=== PATIENT | female | born 1960 | race Caucasian/White ===

== ENCOUNTER → 2020-03-07 08:11 | Outpatient (BNVA) | payer MEDICARE, SELFPAY | PROVIDERS: Visit Provider Surgery | DX: E66.3 Overweight (principal); K90.9 Intestinal malabsorption, unspecified; Z71.3 Dietary counseling and surveillance | CPT/HCPCS: 99212 ==

== ENCOUNTER 2020-04-08 06:53 | Outpatient (REF) | payer MEDICARE, SELFPAY ==
[2020-04-08 07:57] LABS: MANUAL DIFF FLAG NO
[2020-04-08 08:03] LABS: Basophils Percent Auto 0.5 % (0-2); Eosinophils Absolute Auto 0.1 X10*3/uL (0.0-0.4); Eosinophils Percent Auto 2.1 % (0-4); Hematocrit 33.9 % (37-47); Hemoglobin 10.9 g/dl (12.0-16.0); Imm Gran Abs Auto 0.01 X10*3/uL (0.00-0.03); Imm Gran Pct Auto 0.3 % (0.0-0.4); Lymphocytes Percent Auto 25.1 % (20-40); Mean Corpuscular HGB Conc 32.2 g/dl (31.0-35.0); Mean Corpuscular Hemoglobin 31.1 pg (27.0-33.0); Mean Corpuscular Volume 96.6 fL (80-98); Mean Platelet Volume 9.3 fL (9.4-12.3); Monocytes Absolute Auto 0.4 X10*3/uL (0.1-1.2); Monocytes Percent Auto 9.6 % (2-11); Neutrophils Absolute Auto 2.4 X10*3/uL (2.0-8.3); Neutrophils Percent Auto 62.4 % (45-73); Platelet Count 285 X10*3/uL (160-400); Red Blood Count 3.51 X10*6/uL (4.20-5.50); Red Cell Distribution Width 14.9 % (11.0-16.0); White Blood Count 3.9 X10*3/uL (4.8-10.8)
[2020-04-08 08:32] LABS: Alanine Aminotransferase 21 U/L (0-31); Albumin Level 4.2 g/dL (3.5-5.0); Alkaline Phosphatase 104 U/L (39-117); Anion Gap 14 (12-20); Aspartate Amino Transferase 21 U/L (5-31); Bilirubin Total 0.9 mg/dL (0.0-1.0); Blood Urea Nitrogen 20 mg/dL (9-16); C Reactive Protein 0.06 mg/dL (< or = 0.50); Carbon Dioxide 24 mmol/L (22-29); Chloride 104 mmol/L (96-108); Cholesterol 165 mg/dL; Estimated Glomerular Filt Rate > 60; Glucose Random 82 mg/dL (60-115); HDL Cholesterol 40 mg/dL; LDL Cholesterol Calculated 108 mg/dl; Potassium 3.6 mmol/l (3.3-5.1); Sodium 138 mmol/L (135-145); Total Protein 6.7 g/dL (6.5-8.0); Triglycerides 88 mg/dL
[2020-04-08 08:45] LABS: Hemoglobin A1c % < 4.0 %
[2020-04-08 08:56] LABS: Ferritin 103 ng/mL (10-250)
[2020-04-08 09:39] LABS: Folate 15.7 ng/mL (> or = 4.0); Vitamin B12 473 pg/mL (200-900)
[2020-04-11 01:56] LABS: Zinc 72 mcg/dL (60-130)
[2020-04-13 10:57] LABS: Vitamin B1 18 nmol/L (8-30)
[2020-04-13 14:52] LABS: Vitamin A 47 mcg/dL (38-98)
== END 2020-04-08 06:54 | disposition home or self-care (01) ==
LOC: HO.LAB 06:53
PROVIDERS: Visit Provider Surgery
DX: E66.3 Overweight (principal); K90.9 Intestinal malabsorption, unspecified
CPT/HCPCS: 36415; 80053; 80061; 82607; 82728; 82746; 83036; 83525; 84425; 84590; 84630; 85025; 86140

== ENCOUNTER → 2020-04-11 07:32 | Outpatient (BNVA) | payer MEDICARE, SELFPAY | PROVIDERS: Visit Provider Surgery | DX: E66.3 Overweight (principal); Z68.27 Body mass index [BMI] 27.0-27.9, adult; Z71.3 Dietary counseling and surveillance | CPT/HCPCS: Q3014 ==

== ENCOUNTER → 2020-05-11 08:05 | Outpatient (BNVA) | payer MEDICARE, SELFPAY | PROVIDERS: Visit Provider Surgery | DX: E66.3 Overweight (principal); Z68.26 Body mass index [BMI] 26.0-26.9, adult; Z71.3 Dietary counseling and surveillance | CPT/HCPCS: Q3014 ==

== ENCOUNTER → 2020-06-29 08:10 | Outpatient (BNVA) | payer MEDICARE, SELFPAY | PROVIDERS: Visit Provider Surgery | DX: R11.0 Nausea (principal) | CPT/HCPCS: Q3014 ==

== ENCOUNTER → 2020-07-27 08:05 | Outpatient (BNVA) | payer MEDICARE, SELFPAY | PROVIDERS: Visit Provider Surgery | DX: K90.9 Intestinal malabsorption, unspecified (principal); Z68.20 Body mass index [BMI] 20.0-20.9, adult; Z98.84 Bariatric surgery status; Z71.3 Dietary counseling and surveillance; Z87.891 Personal history of nicotine dependence | CPT/HCPCS: Q3014 ==

== ENCOUNTER 2020-08-15 10:28 | Outpatient (REF) | payer MEDICARE, SELFPAY ==
[2020-08-15 11:38] LABS: MANUAL DIFF FLAG NO
[2020-08-15 11:48] LABS: Basophils Percent Auto 0.6 % (0-2); Eosinophils Percent Auto 1.1 % (0-4); Hematocrit 33.2 % (37-47); Hemoglobin 10.7 g/dl (12.0-16.0); Lymphocytes Absolute Auto 1.1 X10*3/uL (1.2-4.9); Lymphocytes Percent Auto 30.1 % (20-40); Mean Corpuscular HGB Conc 32.2 g/dl (31.0-35.0); Mean Corpuscular Hemoglobin 34.7 pg (27.0-33.0); Mean Corpuscular Volume 107.8 fL (80-98); Mean Platelet Volume 9.2 fL (9.4-12.3); Monocytes Absolute Auto 0.4 X10*3/uL (0.1-1.2); Monocytes Percent Auto 11.2 % (2-11); Platelet Count 333 X10*3/uL (160-400); Red Blood Count 3.08 X10*6/uL (4.20-5.50); White Blood Count 3.5 X10*3/uL (4.8-10.8)
[2020-08-15 12:25] LABS: TSH reflex Free T4 1.25 uIU/mL (0.32-4.0); Vitamin D 25-OH Total 12.6 ng/mL (>30)
[2020-08-15 12:27] LABS: Alanine Aminotransferase 60 U/L (0-31); Albumin Level 3.8 g/dL (3.5-5.0); Alkaline Phosphatase 113 U/L (39-117); Anion Gap 12 (12-20); Aspartate Amino Transferase 29 U/L (5-31); Bilirubin Total 1.1 mg/dL (0.0-1.0); Blood Urea Nitrogen 27 mg/dL (9-16); C Reactive Protein 0.08 mg/dL (< or = 0.50); Calcium 9.1 mg/dL (8.4-10.2); Carbon Dioxide 25 mmol/L (22-29); Chloride 106 mmol/L (96-108); Cholesterol 138 mg/dL; Estimated Glomerular Filt Rate > 60; Glucose Random 76 mg/dL (60-115); HDL Cholesterol 41 mg/dL; LDL Cholesterol Calculated 79 mg/dl; Potassium 4.1 mmol/L (3.3-5.1); Sodium 139 mmol/L (135-145); Total Protein 6.1 g/dL (6.5-8.0); Triglycerides 90 mg/dL
[2020-08-15 12:34] LABS: Folate 15.4 ng/mL (> or = 4.0); Vitamin B12 1192 pg/mL (200-900)
[2020-08-15 13:15] LABS: Ferritin 166 ng/mL (10-250)
[2020-08-16 11:52] LABS: Calcium (PTHI) 9.2 mg/dL (8.6-10.4); PTHI 57 pg/mL (14-64)
[2020-08-18 06:12] LABS: Zinc 71 mcg/dL (60-130)
[2020-08-20 12:16] LABS: Vitamin A 29 mcg/dL (38-98)
[2020-08-22 08:26] LABS: Vitamin B1 20 nmol/L (8-30)
== END 2020-08-15 10:29 | disposition home or self-care (01) ==
LOC: HO.LAB 10:28
PROVIDERS: Visit Provider Surgery
DX: K90.9 Intestinal malabsorption, unspecified (principal)
CPT/HCPCS: 36415; 80053; 80061; 82306; 82607; 82728; 82746; 83036; 83525; 83970; 84425; 84443; 84590; 84630; 85025; 86140

== ENCOUNTER → 2020-08-26 08:12 | Outpatient (BNVA) | payer MEDICARE, SELFPAY | PROVIDERS: Visit Provider Surgery | DX: K90.9 Intestinal malabsorption, unspecified (principal) | CPT/HCPCS: Q3014 ==

== ENCOUNTER → 2020-09-26 08:12 | Outpatient (BNVA) | payer MEDICARE, SELFPAY | PROVIDERS: Visit Provider Surgery | DX: K90.9 Intestinal malabsorption, unspecified (principal) | CPT/HCPCS: Q3014 ==

== ENCOUNTER 2020-10-03 07:22 | Outpatient (REF) | payer MEDICARE, SELFPAY ==
[2020-10-03 08:03] LABS: MANUAL DIFF FLAG NO
[2020-10-03 08:12] LABS: Basophils Percent Auto 0.7 % (0-2); Eosinophils Absolute Auto 0.1 X10*3/uL (0.0-0.4); Eosinophils Percent Auto 1.8 % (0-4); Hematocrit 35.1 % (37-47); Hemoglobin 11.3 g/dl (12.0-16.0); Lymphocytes Percent Auto 35.5 % (20-40); Mean Corpuscular HGB Conc 32.2 g/dl (31.0-35.0); Mean Corpuscular Hemoglobin 33.7 pg (27.0-33.0); Mean Corpuscular Volume 104.8 fL (80-98); Mean Platelet Volume 9.4 fL (9.4-12.3); Monocytes Absolute Auto 0.3 X10*3/uL (0.1-1.2); Monocytes Percent Auto 9.9 % (2-11); Neutrophils Absolute Auto 1.5 X10*3/uL (2.0-8.3); Neutrophils Percent Auto 52.1 % (45-73); Platelet Count 238 X10*3/uL (160-400); Red Blood Count 3.35 X10*6/uL (4.20-5.50); Red Cell Distribution Width 12.9 % (11.0-16.0); White Blood Count 2.8 X10*3/uL (4.8-10.8)
[2020-10-03 08:42] LABS: Alanine Aminotransferase 55 U/L (0-31); Alkaline Phosphatase 113 U/L (39-117); Anion Gap 13 (12-20); Aspartate Amino Transferase 51 U/L (5-31); Bilirubin Total 1.1 mg/dL (0.0-1.0); Blood Urea Nitrogen 22 mg/dL (9-16); C Reactive Protein 0.04 mg/dL (< or = 0.50); Calcium 9.4 mg/dL (8.4-10.2); Carbon Dioxide 25 mmol/L (22-29); Chloride 106 mmol/L (96-108); Cholesterol 150 mg/dL; Estimated Glomerular Filt Rate > 60; Glucose Random 89 mg/dL (60-115); HDL Cholesterol 39 mg/dL; Iron 94 mcg/dL (30-160); LDL Cholesterol Calculated 92 mg/dl; Percent Iron Saturation 35 % (15-50); Potassium 3.6 mmol/L (3.3-5.1); Sodium 140 mmol/L (135-145); Total Iron Binding Capacity 265 mcg/dL (228-428); Total Protein 6.4 g/dL (6.5-8.0); Triglycerides 96 mg/dL; Unsaturated Iron Binding 171 ug/dL
[2020-10-03 08:51] LABS: Hemoglobin A1c % < 4.0 %
[2020-10-03 08:55] LABS: Ferritin 130 ng/mL (10-250); TSH reflex Free T4 0.76 uIU/mL (0.32-4.0); Vitamin D 25-OH Total 31.2 ng/mL (>30)
[2020-10-03 10:46] LABS: Folate 15.6 ng/mL (> or = 4.0); Vitamin B12 404 pg/mL (200-900)
[2020-10-05 13:32] LABS: Calcium (PTHI) 9.7 mg/dL (8.6-10.4); PTHI 38 pg/mL (14-64)
[2020-10-06 06:32] LABS: Zinc 57 mcg/dL (60-130)
[2020-10-07 13:17] LABS: Vitamin B1 27 nmol/L (8-30)
[2020-10-08 00:56] LABS: Vitamin A 35 mcg/dL (38-98)
== END 2020-10-03 07:23 | disposition home or self-care (01) ==
LOC: HO.LAB 07:22
PROVIDERS: Visit Provider Surgery
DX: K90.9 Intestinal malabsorption, unspecified (principal)
CPT/HCPCS: 36415; 80053; 80061; 82306; 82607; 82728; 82746; 83036; 83525; 83540; 83970; 84425; 84443; 84590; 84630; 85025; 86140

== ENCOUNTER 2020-10-15 16:26 | Inpatient (IN) | payer MEDICARE, SELFPAY ==
--- NOTE | ~2020-10-15 | CT_ITS ---
EXAMINATION: CT ANGIOGRAM HEAD CT ANGIOGRAM NECK CLINICAL INFORMATION: Left-sided mouth drooping. Slurred speech. History of cerebral vascular accident. Schwannoma. COMPARISON: None available. TECHNIQUE: Initial noncontrast wafer batter mixer imaging of the head and neck was performed. Noncontrast head CT was also performed. Test bolus sequences followed by intravenous administration 70 mL of Omnipaque 350. Helical imaging was performed in the axial plane from the aortic arch to the skull vertex. Delayed postcontrast imaging of the head was also performed. The data was processed at the phlebotomy technologist's workstation for generation of MIP sequences. Angled MIPs and volume rendered reformatted images were also generated at an offline 3D workstation. Stenoses are assessed in accordance with NASCET criteria unless otherwise indicated. This CT examination was performed using dose optimization techniques as appropriate, variously including the following: *Automated exposure control. *Adjustment of mA and/or kV according to patient size (this includes techniques or standardized protocols for targeted exams where dose is matched to indication/reason for exam; i.e. extremities or head). *Use of iterative reconstruction technique. DLP: 2037 mGy-cm FINDINGS: CT Head: There is loss of herrera-white matter differentiation centered on the right anterior insula and right frontal operculum. There is also partial loss of distinction of the right lentiform nucleus and caudate head. No evidence of hemorrhagic conversion. Changes of prior left temporal craniotomy for aneurysm clipping in the region of the left-sided M2 bifurcation. Regions of chronic encephalomalacia within the lateral aspect of the left frontal lobe. A few foci of hypoattenuation in the periventricular and deep white matter are consistent with mild microangiopathy. The ventricles are normal in size and configuration. No evidence for obstructive hydrocephalus. No midline shift. No extra-axial fluid collections. There is a enhancing mass filling the right internal auditory canal extending along the right cerebellopontine, measuring 1.7 x 1.4 cm. No pathologic intra-axial enhancement. No acute soft tissue or osseous abnormalities. Mild mucosal thickening of the paranasal sinuses. The mastoid air cells and middle ear cavities are clear. CT Neck: The thyroid gland and remaining cervical soft tissues are within normal limits. Mild degenerative anterolistheses of C7 on T1 and T1 on T2. Advanced degenerative disc disease at C5-C6 and C6-C7. Moderate degenerative disc disease at C4-C5, C7-T1, and T1-T2. Facet and uncovertebral joint arthropathy leads osseous encroachment on the neural foramina from C3-C6. CT Upper Chest: The visualized lung apices and upper mediastinum are within normal limits. Neck CTA: Aortic Arch: Normal contour and caliber with moderate calcific atherosclerotic disease. Classic 3 vessel branching pattern of the aortic arch. Great Vessel Origins: No significant stenosis of the branch origins. Right Common Carotid Artery: No focal stenosis or occlusion. Cervical Right Internal Carotid Artery: Mild calcific atherosclerotic disease of the carotid bulb and proximal internal carotid artery without flow-limiting stenosis. Left Common Carotid Artery: No focal stenosis or occlusion. Cervical Left Internal Carotid Artery: Mild calcific atherosclerotic disease of the carotid bulb and proximal internal carotid artery without flow-limiting stenosis. Cervical Right Vertebral Artery: No focal stenosis or occlusion. Cervical Left Vertebral Artery: Dominant. No focal stenosis or occlusion. Brain CTA: Moderate venous contamination. Intracranial Internal Carotid Arteries: Mild calcific atherosclerotic disease of the intracranial internal carotid arteries without occlusion or flow-limiting stenosis. No focal stenosis or occlusion. There is a 0.2 cm infundibulum at the origin of the right-sided posterior communicating artery. Right Anterior Cerebral Artery: Normal A1 segment. Normal opacification of the distal JOSS segments. Left Anterior Cerebral Artery: The A1 segment is diminutive. Normal opacification of the distal JOSS segments. Anterior Communicating Artery: Normal. Right Middle Cerebral Artery: Normal M1 segment of the MCA without focal stenosis or occlusion. There is occlusion of the proximal M2 branch (image [id number]). Left Middle Cerebral Artery: Normal M1 segment of the MCA without focal stenosis or occlusion. Normal arborization of the distal segments. Changes of surgical clipping of an M1-M2 bifurcation aneurysm. There is opacification of a 0.6 cm aneurysm base associated with this clipping. Right Vertebral Artery: The V4 segment largely terminates as the posterior inferior cerebellar artery. Left Vertebral Artery: Normal V4 segment. Normal opacification of the proximal segments of the posterior inferior cerebellar artery. Basilar Artery: Normal without focal stenosis or occlusion. Normal appearance of the proximal superior cerebellar arteries. Right Posterior Cerebral Artery: Normal P1 segment. Normal opacification of the distal OY[employer] [place]ER segments. Left Posterior Cerebral Artery: The P1 segment is diminutive. origin of the [employer] with robust opacification of the posterior communicating artery. Normal opacification of the distal [place] segments. Normal opacification of the superior sagittal, straight, transverse, and sigmoid sinuses. CT/CT angio head neck IMPRESSION: 1. Acute infarct of the right anterior insula, right frontal operculum, and right lentiform nucleus/caudate head. No hemorrhagic conversion. 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 2. Prior clipping of an aneurysm at the left M1-M2 junction. A 0.6 cm base of this aneurysm remains opacified at this time. Recommend comparison with prior angiographic imaging. 3. A 1.7 cm mass is noted filling the right internal auditory canal and extending along the right cerebellopontine angle. Findings remain most consistent with a schwannoma. This critical result was discussed with Melinda Tirado MD at 19:58 on 10/15/2020 and it was ascertained that the content and urgency of the report was understood at the time of direct communication.
--- NOTE | ~2020-10-15 | US_ITS ---
EXAMINATION: LEFT LOWER EXTREMITY DEEP VENOUS ULTRASOUND CLINICAL INFORMATION: Left lower extremity swelling COMPARISON: None. TECHNIQUE: Duplex Doppler imaging with compression maneuvers were performed of the left lower extremity deep venous system. FINDINGS: The visualized common femoral, femoral and popliteal veins demonstrate normal compressibility and color flow without evidence of venous thrombosis. Visualized portions of the calf veins demonstrate normal color fill-in suggesting patency. There is no evidence of a Pedraza's cyst. US/US venous duplex LE LT IMPRESSION: No evidence of deep venous thrombosis involving the left lower extremity.
[2020-10-15 16:34] VITALS: BP 98/64; PULSE 73; RESP 16; O2SAT 98; BMI 23.4
[2020-10-15 16:57] LABS: MANUAL DIFF FLAG NO
[2020-10-15 17:06] LABS: Hematocrit 31.5 % (37-47); Hemoglobin 10.3 g/dl (12.0-16.0); Mean Corpuscular HGB Conc 32.7 g/dl (31.0-35.0); Mean Platelet Volume 9.1 fL (9.4-12.3); Neutrophils Percent Auto 69.1 % (45-73); Platelet Count 242 X10*3/uL (160-400); Red Blood Count 3.03 X10*6/uL (4.20-5.50); Red Cell Distribution Width 13.2 % (11.0-16.0); White Blood Count 4.6 X10*3/uL (4.8-10.8)
[2020-10-15 17:07] LABS: Imm Gran Abs Auto 0.02 X10*3/uL (0.00-0.03); Imm Gran Pct Auto 0.4 % (0.0-0.4); Lymphocytes Absolute Auto 0.9 X10*3/uL (1.2-4.9); Lymphocytes Percent Auto 19.4 % (20-40); Monocytes Absolute Auto 0.5 X10*3/uL (0.1-1.2); Monocytes Percent Auto 11.1 % (2-11); Neutrophils Absolute Auto 3.2 X10*3/uL (2.0-8.3)
--- NOTE | 2020-10-15 17:10 | ECG_ITS ---
Test Reason : STROKE Blood Pressure : / mmHG Vent. Rate : 061 BPM Atrial Rate : 061 BPM P-R Int : 124 ms QRS Dur : 090 ms QT Int : 424 ms P-R-T Axes : 055 037 030 degrees QTc Int : 426 ms Normal sinus rhythm Normal ECG No previous ECGs available Referred By: Melinda Tirado Electronically Signed By:Lester Loyola
[2020-10-15 17:12] LABS: INTERNATIONAL NORM RATIO 1.1 (0.9-1.1); Prothrombin Time 13.4 SEC (10.8-13.0)
--- NOTE | 2020-10-15 17:13 | ED.NEUROSD ---
HPI - Neuro Symptoms/Deficit General Chief Complaint: Stroke Stated Complaint: Stroke? Time Seen by Provider: 10/15/20 16:54 Source: patient and family Mode of arrival: wheelchair Limitations: no limitations History of Present Illness HPI Narrative: Patient comes emergency room complaining of left-sided mouth droop and slurry speech. Patient states that this morning around 09:30, patient had trouble walking due to weakness in both legs. 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 Patient did not think anything was unusual, today she was seen by her sister at 09:30 in the morning, the sister thinks that patient has left-sided mouth droop and that her speech is slurry. Patient disagrees with her sister, states that she is at baseline. Patient states that she has had history of CVAs in the past, brain aneurysms with 7 clips, right-sided schwannoma with chronic mild right-sided arm weakness. Patient on blood thinners. Patient denies dizziness, no headache, states that she feels well. Related Data Home Medications Medication Instructions Recorded Confirmed brexpiprazole [Rexulti] 1 tab PO BEDTIME 10/15/20 10/15/20 clonazepam 1 tab PO BEDTIME 10/15/20 10/15/20 clotrimazole 1 appl TOPICAL BID 10/15/20 10/15/20 cyanocobalamin (vitamin B-12) 1 ml IM Q2W 10/15/20 10/15/20 escitalopram oxalate 1 tab PO DAILY 10/15/20 10/15/20 lamotrigine 1 tab PO DAILY 10/15/20 10/15/20 ondansetron 1 tab PO Q12H 10/15/20 10/15/20 oxybutynin chloride 1 tab PO DAILY 10/15/20 10/15/20 quetiapine 1 tab PO BEDTIME 10/15/20 10/15/20 sucralfate 1 tab PO BID 10/15/20 10/15/20 topiramate 1 cap PO BEDTIME 10/15/20 10/15/20 triamterene-hydrochlorothiazid 1 tab PO DAILY 10/15/20 10/15/20 venlafaxine 1 tab PO DAILY 10/15/20 10/15/20 vortioxetine [Trintellix] 1 tab PO DAILY 10/15/20 10/15/20 Allergies Allergy/AdvReac Type Severity Reaction Status Date / Time epinephrine [EPINEPHRINE] Allergy Unknown SHAKY Verified 10/15/20 16:36 metoclopramide [From REGLAN] Allergy Unknown FIGHT OR Verified 10/15/20 16:36 FLIGHT RESPONSE morphine [MORPHINE] Allergy Unknown GI UPSET Verified 10/15/20 16:36 Review of Systems Review of Systems: Constitutional : No Weight loss, No Fever, No Chills, No Night Sweats, No Fatigue, No Malaise chronic weakness ENT/Mouth : No Hearing loss, No Ear Pain, No Nasal Congestion, No Sinus Pain, No Hoarseness, No sore throat, No Rhinorrhea, No Swallowing Difficulty Eyes: No Eye Pain, No Swelling, No Redness, No Foreign Body, No Discharge, No Vision Changes Cardiovascular : No Chest Pain, No SOB, No Dyspnea on Exertion, No Orthopnea, No Edema, No Palpitations Respiratory : No Cough, No Sputum, No Wheezing, No Smoke Exposure, No Dyspnea Gastrointestinal : No Nausea, No Vomiting, No Diarrhea, No Constipation, No abdominal Pain, No Hematochezia, No Melena Genitourinary : no irregular bleeding, No Dysuria, No Urinary Frequency, No Hematuria, No Urinary Incontinence, No Urgency, No Flank Pain, No Urinary Flow Changes, No Hesitancy Musculoskeletal : No joint pain, No Myalgias, No Joint Swelling, chronic muscle weakness Skin : No Skin Lesions, No rash Neuro : No Weakness, No Numbness, No Paresthesias, No Loss of Consciousness, No Dizziness, No Headache, new left-sided mouth droop and slurred speech per family Psych : No Anxiety/Panic, No Depression, No SI/HI/AH/VH, No Social Issues, Heme/Lymph: No Bruising, No Bleeding,No Lymphadenopathy Endocrine : No Polyuria, No Polydipsia, No Temperature Intolerance PMFSH Past Medical History Medical History H/O cerebral artery occlusion Intestinal malabsorption Overweight Schwannoma Surgical History H/O cosmetic surgery History of craniotomy History of pubovaginal sling History of Anahi-en-Y gastric bypass Hx laparoscopic cholecystectomy Hx of hernia repair S/P laminectomy S/P nasal surgery S/P rotator cuff repair S/P TKR (total knee replacement) Family History Family History (Updated 02/29/20 @ 13:17 by Chad Thomson [facility]) Father No problems noted. Mother No problems noted. Social History Social History (Updated 02/29/20 @ 13:26 by Chad Thomson [facility]) Household Members: None Housing: Condominium Do you presently have visiting nurse or other home services: No (pt sister helps her out around house) Alcohol intake: current Alcohol intake frequency: holidays/special occasions only Patient Tobacco Use Status: Former Tobacco user Cigarette Packs Per Day: 2 Cigarettes Per Day: 40.0 Smoked in Last 30 Days: No Use of substances other than those prescribed or required for medical reasons: No Have you been hit, kicked, punched, or otherwise hurt by someone within the past year? If so, by whom?: No Do you feel safe in your current relationship?: No Is there a partner from a previous relationship who is making you feel unsafe now?: No Are you made to feel afraid or neglected: No Advance Directives: No Advance Directives Information Provided: No Do you have thoughts of harming others: None Do you have a plan to hurt others: No Plan Recently lost weight without trying: No How much weight loss: Not applicable Eating poorly because of decreased appetite: No Nutrition screen score: 0 Nutrition Risks: No Nutritional Risk Patient : No : No Poor oral hygiene: No Physical Exam Vital Signs: Vital Signs: Last Vital Signs Temp 98.1 F 10/16/20 00:17 Pulse 67 10/16/20 00:17 Resp 18 10/16/20 00:17 BP 101/61 10/16/20 00:17 Pulse Ox 97 10/16/20 00:17 Body Mass Index 23.4 Appearance: Alert. Oriented X3. No acute distress. Eyes: Pupils equal, round and reactive to light. ENT: Pharynx normal. Neck: Normal inspection. Neck supple. No lymph nodes noted. No crepitus CVS: Normal heart rate and rhythm. Pulses normal. Normal S1 and S2 Respiratory: No respiratory distress. Breath sounds normal. No Wheezing. No rales Abdomen: Soft and nontender. No rigidity. No distention. good BS x4 Skin: Skin warm and dry. Normal skin color. Normal skin turgor. Extremities: No lower extremity edema. No lower extremity edema. No Lacerations. No Rash Neuro: Oriented X 3. Moderate left-sided mouth droop, able to raise eyebrows, good strength in upper and lower extremities, left upper extremity 4/5, otherwise normal. Per family, the speech is still a bit slurry, to me it sounds nearly normal Course Course Course Narrative: After I received phone call from [facility] regarding the patient's CT scan, I discussed the patient with Dr. Packer. Dr. Packer recommended to call [facility]. I spoke to Dr. Hennessy, Neurology endovascular interventionalist. Given the patient's symptoms and the NIH score of 3, at this time, interventional treatment is not recommended, only medical. I spoke to the patient regarding the above-mentioned recommendations. Patient agrees to stay in the hospital. Ideally, patient should be given baby aspirin 81 mg, however at this time patient is refusing because she has history of gastric sleeve surgery, and will not take it until Dr. Robertson approves that she takes aspirin. I contacted Dr. Robertson by [employer], he is not source water protection specialist today. Response pending. Patient states that she will not take advice from anyone but him, including ASSOCIATE PROFESSOR OF ECONOMICS/PA or other attendings source water protection specialist. I discussed the patient with Dr. Villalobos, who will be admitting the pt I was able to get in touch with Dr. Robertson, patient is not to be given aspirin, only Plavix. I spoke to Dr. Packer about the Plavix, who agrees that the patient can be treated with Plavix 75 mg MDM - Neuro Symptoms/Deficit Lab Data Result diagrams: 10/15/20 22:21 10/15/20 22:21 Labs: Lab Results 10/15/20 10/15/20 10/15/20 Range/Units 16:51 16:51 16:52 WBC 4.6 L (4.8-10.8) X10*3/uL RBC 3.03 L (4.20-5.50) X10*6/uL Hgb 10.3 L (12.0-16.0) g/dl Hct 31.5 L (37-47) % MCV 104.0 H (80-98) fL MCH 34.0 H (27.0-33.0) pg MCHC 32.7 (31.0-35.0) g/dl RDW 13.2 (11.0-16.0) % Plt Count 242 (160-400) X10*3/uL MPV 9.1 L (9.4-12.3) fL Immature Gran % (Auto) 0.4 (0.0-0.4) % Neut % (Auto) 69.1 (45-73) % Lymph % (Auto) 19.4 L (20-40) % [place] % (Auto) 11.1 H (2-11) % Eos % (Auto) 0.0 (0-4) % Baso % (Auto) 0.0 (0-2) % Lymph # (Auto) 0.9 L (1.2-4.9) X10*3/uL [place] # (Auto) 0.5 (0.1-1.2) X10*3/uL Eos # (Auto) 0.0 (0.0-0.4) X10*3/uL Baso # (Auto) 0.0 (0.0-0.2) X10*3/uL Abs Immat Gran (auto) 0.02 (0.00-0.03) X10*3/uL Absolute Neuts (auto) 3.2 (2.0-8.3) X10*3/uL Absolute Nucleated RBC 0.000 (0.0-0.012) X10*3/uL Nucleated RBC % (auto) 0.0 (0.0-0.2) /100WBC PT (10.8-13.0) SEC INR (0.9-1.1) Sodium 142 (135-145) mmol/L Potassium 3.6 (3.3-5.1) mmol/L Chloride 108 (96-108) mmol/L Carbon Dioxide 24 (22-29) mmol/L Anion Gap 14 (12-20) BUN 17 H (9-16) mg/dL Creatinine 0.58 (0.5-1.4) mg/dL Estim Creat Clear Calc 74.0 Estimated GFR > 60 POC Glucose (60-115) mg/dL Random Glucose 105 (60-115) mg/dL Calcium 9.4 (8.4-10.2) mg/dL Total Bilirubin 0.9 (0.0-1.0) mg/dL Direct Bilirubin (0.0-0.5) mg/dL AST 51 H (5-31) U/L ALT 42 H (0-31) U/L Alkaline Phosphatase 107 (39-117) U/L Troponin I High Sens 8.1 (<3.5-17.0) ng/L Total Protein 6.2 L (6.5-8.0) g/dL Albumin 3.9 (3.5-5.0) g/dL COVID-19 (MAICOL) (Negative) COVID-19 Clin Com 10/15/20 10/15/20 10/15/20 Range/Units 16:52 16:52 19:14 WBC 3.5 L (4.8-10.8) X10*3/uL RBC 2.62 L (4.20-5.50) X10*6/uL Hgb 8.8 L (12.0-16.0) g/dl Hct 27.1 L (37-47) % MCV 103.4 H (80-98) fL MCH 33.6 H (27.0-33.0) pg MCHC 32.5 (31.0-35.0) g/dl RDW 13.2 (11.0-16.0) % Plt Count 206 (160-400) X10*3/uL MPV 9.2 L (9.4-12.3) fL Immature Gran % (Auto) 0.3 (0.0-0.4) % Neut % (Auto) 59.0 (45-73) % Lymph % (Auto) 28.3 (20-40) % [place] % (Auto) 11.8 H (2-11) % Eos % (Auto) 0.3 (0-4) % Baso % (Auto) 0.3 (0-2) % Lymph # (Auto) 1.0 L (1.2-4.9) X10*3/uL [place] # (Auto) 0.4 (0.1-1.2) X10*3/uL Eos # (Auto) 0.0 (0.0-0.4) X10*3/uL Baso # (Auto) 0.0 (0.0-0.2) X10*3/uL Abs Immat Gran (auto) 0.01 (0.00-0.03) X10*3/uL Absolute Neuts (auto) 2.0 (2.0-8.3) X10*3/uL Absolute Nucleated RBC 0.000 (0.0-0.012) X10*3/uL Nucleated RBC % (auto) 0.0 (0.0-0.2) /100WBC PT 13.4 H (10.8-13.0) SEC INR 1.1 (0.9-1.1) Sodium (135-145) mmol/L Potassium (3.3-5.1) mmol/L Chloride (96-108) mmol/L Carbon Dioxide (22-29) mmol/L Anion Gap (12-20) BUN (9-16) mg/dL Creatinine (0.5-1.4) mg/dL Estim Creat Clear Calc Estimated GFR POC Glucose (60-115) mg/dL Random Glucose (60-115) mg/dL Calcium (8.4-10.2) mg/dL Total Bilirubin (0.0-1.0) mg/dL Direct Bilirubin (0.0-0.5) mg/dL AST (5-31) U/L ALT (0-31) U/L Alkaline Phosphatase (39-117) U/L Troponin I High Sens (<3.5-17.0) ng/L Total Protein (6.5-8.0) g/dL Albumin (3.5-5.0) g/dL COVID-19 (MAICOL) Negative (Negative) COVID-19 Clin Com See Note 10/15/20 10/15/20 Range/Units 19:14 19:25 WBC (4.8-10.8) X10*3/uL RBC (4.20-5.50) X10*6/uL Hgb (12.0-16.0) g/dl Hct (37-47) % MCV (80-98) fL MCH (27.0-33.0) pg MCHC (31.0-35.0) g/dl RDW (11.0-16.0) % Plt Count (160-400) X10*3/uL MPV (9.4-12.3) fL Immature Gran % (Auto) (0.0-0.4) % Neut % (Auto) (45-73) % Lymph % (Auto) (20-40) % [place] % (Auto) (2-11) % Eos % (Auto) (0-4) % Baso % (Auto) (0-2) % Lymph # (Auto) (1.2-4.9) X10*3/uL [place] # (Auto) (0.1-1.2) X10*3/uL Eos # (Auto) (0.0-0.4) X10*3/uL Baso # (Auto) (0.0-0.2) X10*3/uL Abs Immat Gran (auto) (0.00-0.03) X10*3/uL Absolute Neuts (auto) (2.0-8.3) X10*3/uL Absolute Nucleated RBC (0.0-0.012) X10*3/uL Nucleated RBC % (auto) (0.0-0.2) /100WBC PT (10.8-13.0) SEC INR (0.9-1.1) Sodium 141 (135-145) mmol/L Potassium 3.2 L (3.3-5.1) mmol/L Chloride 109 H (96-108) mmol/L Carbon Dioxide 24 (22-29) mmol/L Anion Gap 11 L (12-20) BUN 15 (9-16) mg/dL Creatinine 0.55 (0.5-1.4) mg/dL Estim Creat Clear Calc 78.1 Estimated GFR > 60 POC Glucose 91 (60-115) mg/dL Random Glucose 88 (60-115) mg/dL Calcium 8.7 D (8.4-10.2) mg/dL Total Bilirubin 0.7 (0.0-1.0) mg/dL Direct Bilirubin 0.4 (0.0-0.5) mg/dL AST 38 H (5-31) U/L ALT 35 H (0-31) U/L Alkaline Phosphatase 92 (39-117) U/L Troponin I High Sens (<3.5-17.0) ng/L Total Protein 5.1 L (6.5-8.0) g/dL Albumin 3.3 L (3.5-5.0) g/dL COVID-19 (MAICOL) (Negative) COVID-19 Clin Com ECG Data Attestation: I personally reviewed and interpreted this ECG as follows: (Sent and rhythm, heart rate 61, no ST segment depression or elevation, no T-wave inversion, QTC 426) NIH Stroke Scale Level of Consciousness: Alert Level of Consciousness Questions: Answers both questions correctly Level of Consciousness Commands: Performs both tasks correctly Best Gaze: Normal Visual: No visual loss Facial Palsy: Partial paralysis Motor Arm (Right): No drift Motor Arm (Left): No drift Motor Leg (Right): No drift Motor Leg (Left): No drift Limb Ataxia: Absent Sensory: Normal Best Language: No aphasia Dysarthia: Mild to moderate dysarthria Extinction and Inattention: No abnormality Score: 3 Discharge Plan Discharge Clinical Impression: Acute CVA (cerebrovascular accident) Patient Disposition: Admitted As Inpatient Interventions: Admission Worksheet (ED) Last Done: 10/15/20 23:21
[2020-10-15 17:18] LABS: COVID-19 Test Negative (Negative); IDNOW Serial# 9DD0AD1C
[2020-10-15 17:23] LABS: Troponin-I High Sensitivity 8.1 ng/L (<3.5-17.0)
[2020-10-15 17:27] LABS: Alanine Aminotransferase 42 U/L (0-31); Albumin Level 3.9 g/dL (3.5-5.0); Alkaline Phosphatase 107 U/L (39-117); Anion Gap 14 (12-20); Aspartate Amino Transferase 51 U/L (5-31); Bilirubin Total 0.9 mg/dL (0.0-1.0); Blood Urea Nitrogen 17 mg/dL (9-16); Calcium 9.4 mg/dL (8.4-10.2); Carbon Dioxide 24 mmol/L (22-29); Chloride 108 mmol/L (96-108); Estimated Glomerular Filt Rate > 60; Glucose Random 105 mg/dL (60-115); Potassium 3.6 mmol/L (3.3-5.1); Sodium 142 mmol/L (135-145); Total Protein 6.2 g/dL (6.5-8.0)
[2020-10-15 18:00] VITALS: BP 102/61; PULSE 75; RESP 20; O2SAT 99
[2020-10-15] MEDS: iohexoL 350 MG/ML 100 ML INFUS..BTL IV (19:01)
[2020-10-15 19:18] LABS: MANUAL DIFF FLAG NO
[2020-10-15 19:29] LABS: Glucose, Whole Blood 91 mg/dL (60-115)
[2020-10-15] MEDS: Acetaminophen 325 MG TABLET 650 MG PO (19:29)
[2020-10-15 19:35] LABS: Basophils Percent Auto 0.3 % (0-2); Eosinophils Percent Auto 0.3 % (0-4); Hematocrit 27.1 % (37-47); Hemoglobin 8.8 g/dl (12.0-16.0); Imm Gran Abs Auto 0.01 X10*3/uL (0.00-0.03); Imm Gran Pct Auto 0.3 % (0.0-0.4); Lymphocytes Percent Auto 28.3 % (20-40); Mean Corpuscular HGB Conc 32.5 g/dl (31.0-35.0); Mean Corpuscular Hemoglobin 33.6 pg (27.0-33.0); Mean Corpuscular Volume 103.4 fL (80-98); Mean Platelet Volume 9.2 fL (9.4-12.3); Monocytes Absolute Auto 0.4 X10*3/uL (0.1-1.2); Monocytes Percent Auto 11.8 % (2-11); Platelet Count 206 X10*3/uL (160-400); Red Blood Count 2.62 X10*6/uL (4.20-5.50); Red Cell Distribution Width 13.2 % (11.0-16.0); White Blood Count 3.5 X10*3/uL (4.8-10.8)
--- NOTE | 2020-10-15 19:36 | PC.NURSE ---
2nd attempt to give report. rn unavailable.
[2020-10-15 19:54] LABS: Alanine Aminotransferase 35 U/L (0-31); Albumin Level 3.3 g/dL (3.5-5.0); Alkaline Phosphatase 92 U/L (39-117); Anion Gap 11 (12-20); Aspartate Amino Transferase 38 U/L (5-31); Bilirubin Direct 0.4 mg/dL (0.0-0.5); Bilirubin Total 0.7 mg/dL (0.0-1.0); Blood Urea Nitrogen 15 mg/dL (9-16); Calcium 8.7 mg/dL (8.4-10.2); Carbon Dioxide 24 mmol/L (22-29); Chloride 109 mmol/L (96-108); Creatinine Clr Calc Pharmacy 78.1; Estimated Glomerular Filt Rate > 60; Glucose Random 88 mg/dL (60-115); Potassium 3.2 mmol/L (3.3-5.1); Sodium 141 mmol/L (135-145); Total Protein 5.1 g/dL (6.5-8.0)
[2020-10-15 20:27] VITALS: BP 95/57; PULSE 72; RESP 21; TEMP 36.7; O2SAT 97
--- NOTE | 2020-10-15 20:53 | PC.NURSE ---
Provider at bedside to explain results. patient and family in agreement to hospital admission for medical management due to [facility] being on 10/14 at 2230. Provider explained that due to extensive surgical history, there is limited medical managment options. Neuros checked at 2044, minor improvement in speech noted by family and facial droop by provider.
--- NOTE | 2020-10-15 21:09 | PC.NURSE ---
this narrative writer went back in to patient room to assess patient and family coping of information. pt was on phone with dr. waldron, as reported by pt, per md on phone pt was to give cellphone number [phone] rivera to discuss case with him.
[2020-10-15 22:09] VITALS: PULSE 79; RESP 18; O2SAT 97
[2020-10-15 22:26] LABS: MANUAL DIFF FLAG NO
[2020-10-15 22:29] VITALS: BP 97/58; PULSE 73; RESP 20; TEMP 36.6; O2SAT 97
[2020-10-15 22:30] LABS: Basophils Percent Auto 0.3 % (0-2); Eosinophils Percent Auto 0.8 % (0-4); Hemoglobin 9.4 g/dl (12.0-16.0); Imm Gran Abs Auto 0.02 X10*3/uL (0.00-0.03); Imm Gran Pct Auto 0.6 % (0.0-0.4); Lymphocytes Absolute Auto 1.1 X10*3/uL (1.2-4.9); Mean Corpuscular HGB Conc 33.6 g/dl (31.0-35.0); Mean Corpuscular Hemoglobin 34.6 pg (27.0-33.0); Mean Corpuscular Volume 102.9 fL (80-98); Monocytes Absolute Auto 0.4 X10*3/uL (0.1-1.2); Monocytes Percent Auto 12.5 % (2-11); Neutrophils Absolute Auto 1.9 X10*3/uL (2.0-8.3); Neutrophils Percent Auto 53.8 % (45-73); Platelet Count 198 X10*3/uL (160-400); Red Blood Count 2.72 X10*6/uL (4.20-5.50); Red Cell Distribution Width 13.3 % (11.0-16.0); White Blood Count 3.5 X10*3/uL (4.8-10.8)
--- NOTE | 2020-10-15 22:30 | PC.NURSE ---
Addendum entered by Yancy Gabriel 10/15/20 22:37: Pt is requesting that contact be made with Dr. Clark at [facility] regarding plavix. hospitalist aware. Original Note: after multiple attempts by both this advertising copywriter and floana paula rn, patient refuses plavix. pt request that hospitalist get in contact with neuro team at [facility] to confirm that medication is okay to take with previous surgery history. phone number is [phone]
[2020-10-15 22:43] LABS: Anion Gap 11 (12-20); Blood Urea Nitrogen 14 mg/dL (9-16); Calcium 8.7 mg/dL (8.4-10.2); Carbon Dioxide 23 mmol/L (22-29); Chloride 110 mmol/L (96-108); Creatinine Clr Calc Pharmacy 75.3; Estimated Glomerular Filt Rate > 60; Glucose Random 108 mg/dL (60-115); Potassium 3.1 mmol/L (3.3-5.1); Sodium 141 mmol/L (135-145)
--- NOTE | 2020-10-15 23:29 | P.HPHOSP_ITS ---
History of Present Illness Date of Service: 10/15/20 Chief Complaint: Facial droop 60-year-old female with past medical history of schwannoma, history of brain aneurysm status post coiling, Anahi-en-Y gastric bypass, CVA who presents to the hospital with complaints of left facial droop as well as slurred speech noticed by her family. Patient herself denies noticing these things, it appears that this occurred around 9:00 a.m., by the time she presented to the hospital she was outside of the tPA window. Patient denies having any headache, no change in vision, no chest pain or palpitations, no abdominal pain nausea or vomiting, no diarrhea constipation no urinary symptoms. On arrival to the ED patient hemodynamically stable with no significant past medical history Labs are significant for WBC count of 3.5 she is chronically leukopenic, hemoglobin of PT of 13.4, INR of 1.1, potassium of 3.2, AST of 38, ALT of 35 chronically elevated, COVID negative Patient underwent head and neck CT angiogram which showed acute infarct of the right anterior insula, right frontal operculum, and right lentiform nuc leus/caudate head. No hemorrhagic conversion. 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 Also seen is a prior clipping of an aneurysm at the left M1 M2 junction. Review of Systems Review of Systems: Yes all other systems are reviewed and are negative [facility] Medical History H/O cerebral artery occlusion Intestinal malabsorption Overweight Schwannoma Family History Father No problems noted. Mother No problems noted. Surgical History H/O cosmetic surgery History of craniotomy History of pubovaginal sling History of Anahi-en-Y gastric bypass Hx laparoscopic cholecystectomy Hx of hernia repair S/P laminectomy S/P nasal surgery S/P rotator cuff repair S/P TKR (total knee replacement) Social History Household Members: None Housing: Condominium Do you presently have visiting nurse or other home services: No (pt sister helps her out around house) Alcohol intake: current Alcohol intake frequency: holidays/special occasions only Patient Tobacco Use Status: Former Tobacco user Cigarette Packs Per Day: 2 Cigarettes Per Day: 40.0 Smoked in Last 30 Days: No Use of substances other than those prescribed or required for medical reasons: No Have you been hit, kicked, punched, or otherwise hurt by someone within the past year? If so, by whom?: No Do you feel safe in your current relationship?: No Is there a partner from a previous relationship who is making you feel unsafe no w?: No Are you made to feel afraid or neglected: No Advance Directives: No Advance Directives Information Provided: No Do you have thoughts of harming others: None Do you have a plan to hurt others: No Plan Recently lost weight without trying: No How much weight loss: Not applicable Eating poorly because of decreased appetite: No Nutrition screen score: 0 Nutrition Risks: No Nutritional Risk Patient : No : No Poor oral hygiene: No Meds Allergies Allergy/AdvReac Type Severity Reaction Status Date / Time epinephrine [EPINEPHRINE] Allergy Unknown SHAKY Verified 10/15/20 16:36 metoclopramide [From REGLAN] Allergy Unknown FIGHT OR Verified 10/15/20 16:36 FLIGHT RESPONSE morphine [MORPHINE] Allergy Unknown GI UPSET Verified 10/15/20 16:36 Active Medications: Current Medications Generic Name Dose Route Start Last Admin Trade Name Freq PRN Reason Stop Dose Admin Acetaminophen 650 mg 10/15/20 22:09 Acetaminophen 325 Mg Tablet PO Q6H PRN Pain, Mild (Pain Scale 1-3) Atorvastatin Calcium 80 mg 10/16/20 09:00 Atorvastatin Calcium 80 Mg Tablet PO DAILY FRANCO Brexpiprazole 3 mg 10/16/20 21:00 Brexpiprazole 1 Mg Tablet PO BEDTIME FRANCO Clonazepam 1 mg 10/16/20 21:00 Clonazepam 1 Mg Tablet PO BEDTIME [facility] Clopidogrel Bisulfate 75 mg 10/16/20 09:00 Clopidogrel Bisulfate 75 Mg Tablet PO DAILY FRANCO Clotrimazole 1 appl 10/16/20 09:00 Clotrimazole 1 % Cream 15 Gm Tube TOPICAL BID [facility] Protocol Cyanocobalamin 1,000 mcg 10/29/20 10:00 Cyanocobalamin (Vitamin B-12) 1,000 Mcg/Ml Vial IM Q14D [facility] Docusate Sodium 100 mg 10/15/20 22:09 Docusate Sodium 100 Mg Capsule PO DAILY PRN Constipation Escitalopram Oxalate 20 mg 10/16/20 09:00 Escitalopram Oxalate 20 Mg Tablet PO DAILY [facility] Lamotrigine 200 mg 10/16/20 09:00 Lamotrigine 100 Mg Tablet PO DAILY [facility] Ondansetron HCl 4 mg 10/15/20 22:09 Ondansetron Hcl 4 Mg/2 Ml Vial IVPUSH Q8H PRN Nausea and Vomiting Oxybutynin Chloride 10 mg 10/16/20 09:00 Oxybutynin Chloride Er 5 Mg Tab.Er.24 PO DAILY [facility] Quetiapine Fumarate 25 mg 10/16/20 21:00 Quetiapine Fumarate 25 Mg Tablet PO BEDTIME [facility] Sucralfate 1 gm 10/16/20 09:00 Sucralfate 1 Gm Tablet PO BID [facility] Topiramate 25 mg 10/16/20 21:00 Topiramate 25 Mg Tablet PO BEDTIME [facility] Triamterene/Hydrochlorothiazide 1 tab 10/16/20 09:00 Triamterene/Hctz 37.5/25 Tablet PO DAILY [facility] Protocol Venlafaxine HCl 100 mg 10/16/20 09:00 Venlafaxine Hcl 25 Mg Tablet PO DAILY [facility] Vortioxetine 20 mg 10/16/20 09:00 Vortioxetine Hydrobromide 20 Mg Tablet PO DAILY [facility] Home Medications Medication Instructions Recorded Confirmed Last Taken Type brexpiprazole [Rexulti] 1 tab PO BEDTIME 10/15/20 10/15/20 Unknown History clonazepam 1 tab PO BEDTIME 10/15/20 10/15/20 Unknown History clotrimazole 1 appl TOPICAL BID 10/15/20 10/15/20 Unknown History cyanocobalamin (vitamin B-12) 1 ml IM Q2W 10/15/20 10/15/20 Unknown History escitalopram oxalate 1 tab PO DAILY 10/15/20 10/15/20 Unknown History lamotrigine 1 tab PO DAILY 10/15/20 10/15/20 Unknown History ondansetron 1 tab PO Q12H 10/15/20 10/15/20 Unknown History oxybutynin chloride 1 tab PO DAILY 10/15/20 10/15/20 Unknown History quetiapine 1 tab PO BEDTIME 10/15/20 10/15/20 Unknown History sucralfate 1 tab PO BID 10/15/20 10/15/20 Unknown History topiramate 1 cap PO BEDTIME 10/15/20 10/15/20 Unknown History triamterene-hydrochlorothiazid 1 tab PO DAILY 10/15/20 10/15/20 Unknown History venlafaxine 1 tab PO DAILY 10/15/20 10/15/20 Unknown History vortioxetine [Trintellix] 1 tab PO DAILY 10/15/20 10/15/20 Unknown History Physical Exam Vital Signs and Narrative: Vital Signs: Last Vital Signs Temp 97.8 F 10/15/20 22:29 Pulse 73 10/15/20 22:29 Resp 20 10/15/20 22:29 BP 97/58 L 10/15/20 22:29 Pulse Ox 97 10/15/20 22:29 Body Mass Index 23.4 Const: General: cooperative and no acute distress Orientation/consciousness: patient oriented x3 Eyes: General: appearance normal, both eyes and all related structures Resp: Effort & Inspection: normal respiratory effort and able to speak in complete sentences Cardio: Rate: regular rate Rhythm: regular rhythm GI: Palpation (GI): Soft to palpation Auscultation: normal bowel sounds Skin: General skin exam: no rashes or lesions noted Neuro: Other: Speech clear, has left-sided facial droop slightly at the lips, has 4/5 strength in the left upper extremity, 5/5 on the right, strength is 5/5 in lower extremities bilaterally. General: patient oriented x3 Cognition (Neuro): normal cognition Extrem: Other: Left lower extremity edema, nonpitting as compared to the right General: Yes normal to inspection Results Labs CBC and Chem 7: 10/15/20 22:21 10/15/20 22:21 Labs: Laboratory Results - last 24 hr 10/15/20 10/15/20 10/15/20 16:51 16:51 16:52 MCV 104.0 H MCH 34.0 H MCHC 32.7 RDW 13.2 Plt Count 242 MPV 9.1 L Immature Gran % (Auto) 0.4 Neut % (Auto) 69.1 Lymph % (Auto) 19.4 L [place] % (Auto) 11.1 H Eos % (Auto) 0.0 Baso % (Auto) 0.0 Lymph # (Auto) 0.9 L [place] # (Auto) 0.5 Eos # (Auto) 0.0 Baso # (Auto) 0.0 Abs Immat Gran (auto) 0.02 Absolute Neuts (auto) 3.2 Absolute Nucleated RBC 0.000 Nucleated RBC % (auto) 0.0 PT INR Anion Gap 14 Estim Creat Clear Calc 74.0 Estimated GFR > 60 POC Glucose Random Glucose 105 Calcium 9.4 Total Bilirubin 0.9 Direct Bilirubin AST 51 H ALT 42 H Alkaline Phosphatase 107 Troponin I High Sens 8.1 Total Protein 6.2 L Albumin 3.9 COVID-19 (MAICOL) COVID-19 Clin Com 10/15/20 10/15/20 10/15/20 16:52 16:52 19:14 MCV 103.4 H MCH 33.6 H MCHC 32.5 RDW 13.2 Plt Count 206 MPV 9.2 L Immature Gran % (Auto) 0.3 Neut % (Auto) 59.0 Lymph % (Auto) 28.3 [place] % (Auto) 11.8 H Eos % (Auto) 0.3 Baso % (Auto) 0.3 Lymph # (Auto) 1.0 L [place] # (Auto) 0.4 Eos # (Auto) 0.0 Baso # (Auto) 0.0 Abs Immat Gran (auto) 0.01 Absolute Neuts (auto) 2.0 Absolute Nucleated RBC 0.000 Nucleated RBC % (auto) 0.0 PT 13.4 H INR 1.1 Anion Gap Estim Creat Clear Calc Estimated GFR POC Glucose Random Glucose Calcium Total Bilirubin Direct Bilirubin AST ALT Alkaline Phosphatase Troponin I High Sens Total Protein Albumin COVID-19 (MAICOL) Negative COVID-19 Clin Com See Note 10/15/20 10/15/20 10/15/20 19:14 19:25 22:21 MCV 102.9 H MCH 34.6 H MCHC 33.6 RDW 13.3 Plt Count 198 MPV 9.0 L Immature Gran % (Auto) 0.6 H Neut % (Auto) 53.8 Lymph % (Auto) 32.0 [place] % (Auto) 12.5 H Eos % (Auto) 0.8 Baso % (Auto) 0.3 Lymph # (Auto) 1.1 L [place] # (Auto) 0.4 Eos # (Auto) 0.0 Baso # (Auto) 0.0 Abs Immat Gran (auto) 0.02 Absolute Neuts (auto) 1.9 L Absolute Nucleated RBC 0.000 Nucleated RBC % (auto) 0.0 PT INR Anion Gap 11 L Estim Creat Clear Calc 78.1 Estimated GFR > 60 POC Glucose 91 Random Glucose 88 Calcium 8.7 D Total Bilirubin 0.7 Direct Bilirubin 0.4 AST 38 H ALT 35 H Alkaline Phosphatase 92 Troponin I High Sens Total Protein 5.1 L Albumin 3.3 L COVID-19 (MAICOL) COVID-19 Clin Com 10/15/20 22:21 MCV MCH MCHC RDW Plt Count MPV Immature Gran % (Auto) Neut % (Auto) Lymph % (Auto) [place] % (Auto) Eos % (Auto) Baso % (Auto) Lymph # (Auto) [place] # (Auto) Eos # (Auto) Baso # (Auto) Abs Immat Gran (auto) Absolute Neuts (auto) Absolute Nucleated RBC Nucleated RBC % (auto) PT INR Anion Gap 11 L Estim Creat Clear Calc 75.3 Estimated GFR > 60 POC Glucose Random Glucose 108 Calcium 8.7 Total Bilirubin Direct Bilirubin AST ALT Alkaline Phosphatase Troponin I High Sens Total Protein Albumin COVID-19 (MAICOL) COVID-19 Clin Com Imaging Radiologist's Impressions: Impressions Head/Neck CTA 10/15/20 17:07 IMPRESSION: 1. Acute infarct of the right anterior insula, right frontal operculum, and right lentiform nucleus/caudate head. No hemorrhagic conversion. 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 2. Prior clipping of an aneurysm at the left M1-M2 junction. A 0.6 cm base of this aneurysm remains opacified at this time. Recommend comparison with prior angiographic imaging. 3. A 1.7 cm mass is noted filling the right internal auditory canal and extending along the right cerebellopontine angle. Findings remain most consistent with a schwannoma. This critical result was discussed with Melinda Tirado MD at 19:58 on 10/15/2020 and it was ascertained that the content and urgency of the report was understood at the time of direct communication. Assessment and Plan (1) Acute CVA (cerebrovascular accident): Status: Acute This is a 60-year-old female with a history of brain aneurysm status post clipping, bariatric surgery who presents to the hospital with complaints of left facial droop as well as slurred speech noticed by her family # acute stroke - CT angiogram as above - neuro exam significant for slight facial droop on the left, as well as 4/5 strength in the upper extremity which patient reports is chronic - the case was discussed with Neurology, as well as [facility] neuro surgery, given the low NIH score of patient, they recommended no further intervention for the occlusion - discussion was made with her bariatric surgeon who wanted Plavix instead of aspirin - Plavix 75 mg ordered but patient refused as she wants to confirm with her neurosurgeon 1st - at this time will consult neurology - PT OT - speech eval # anxiety and depression - continue clonazepam, escitalopram and quetiapine as well as venlafaxine
[2020-10-16] VITALS (7 sets, daily range): BP systolic 92–103; BP diastolic 56–65; PULSE 66–82; RESP 18–20; TEMP 36.5–36.9; O2SAT 92–99
[2020-10-16] MEDS: Clopidogrel Bisulfate 75 MG TABLET PO ×2 (00:44→08:51)
[2020-10-16] MEDS: Acetaminophen 325 MG TABLET 650 MG PO ×2 (00:45→08:48)
--- NOTE | 2020-10-16 01:26 | PC.NURSE ---
pt arrived on floor around 0000 accompanied by two family members. Alert and oriented x4, pleasant and cooperative. slight left sided facial droop with mild weakness to left arm. Speech is mumbled, and quiet. gait is steady, but had reported falling in the last week due to vertigo from diagnosed schwannoma. pt sinus on the monitor. will continue to reassess.
--- NOTE | 2020-10-16 04:51 | PC.NURSE ---
pt stated during admission assessment that she does not smoke cigarettes or vapes. while transferring out of bed to use bathroom a juul fell onto the floor from her lap. educated to not use while here in the hospital.
[2020-10-16 08:08] LABS: Cholesterol 138 mg/dL; HDL Cholesterol 37 mg/dL; LDL Cholesterol Calculated 88 mg/dl; Triglycerides 66 mg/dL
--- NOTE | 2020-10-16 08:22 | MHC.CM.PN ---
CM met with Patient at bedside and addressed IMM with her, providing her with the original and placing a copy on the chart. Patient lives alone in a one story condo in [place] and she has a shower chair (no other DME).Patient's Daughter/Padmini is the HCP and DR. Hossein Kelly at [phone] is the PCP. Patient's goal is to return home/no services and CM has initiated and will follow for dc planning.
[2020-10-16] MEDS: Venlafaxine HCL 25 MG TABLET 100 MG PO (08:49)
[2020-10-16] MEDS: Potassium Chloride Packet 20 MEQ PACKET 40 MEQ PO ×2 (08:49→12:25)
[2020-10-16] MEDS: Triamterene/HCTZ 37.5/25 TABLET 1 TAB PO (08:50)
[2020-10-16] MEDS: Atorvastatin Calcium 80 MG TABLET PO (08:51)
[2020-10-16] MEDS: Sucralfate 1 GM TABLET PO ×2 (08:51→21:01)
[2020-10-16] MEDS: Vortioxetine Hydrobromide 20 MG TABLET PO (08:51)
[2020-10-16] MEDS: Escitalopram Oxalate 20 MG TABLET PO (08:51)
[2020-10-16] MEDS: Clotrimazole 1 % Cream 15 GM TUBE 1 APPL TOPICAL ×2 (09:02→21:02)
[2020-10-16] MEDS: lamoTRIgine 100 MG TABLET 150 MG PO (10:08)
--- NOTE | 2020-10-16 11:00 | MHC.STROKE ---
Addendum entered by Dahiana Casillas RN 10/17/20 15:16: I MET WITH THE PATIENT AND HER TWO SISTERS, I DISCUSSED HER STROKE DIAGNOSIS, WE REVIEWED HER STROKE RISK FACTORS INCLUDING FAMILY HISTORY, MOTHER OF A STROKE, FAMILY HISTORY 2 SIBLINGS WITH PFO'S, 2015 SHE HAD AN ANEURYSM REPAIR AT [facility]. SHE HAS AN MRI TOMORROW IN [place], SHE SIGNED A RELEASE AND SHE HAS A COPY OF HER CTA H/N. WE REVIEWED THE STROKE EDUCATION BOOKLET, I ANSWERED ALL OF THEIR QUESTIONS. Original Note: 10/15/20 1626 [facility]. LEFT DROOP, DYSARTHRIA, ONSET 0930, NIHSS = 3, SEE DR DE LOS SANTOS NOTE. CT/CTA H/N. SEE REPORTS, SIGNIFICANT CEREBROVASCULAR HISTORY INCLUDING ANEURYSM WITH CLIPPING AND SCHWANNOMA, NOT A CANDIDATE FOR TPA OR THROMBECTOMY. PASSED SWALLOW SCREEN, STROKE EDUCATION INITIATED. LDL 88 CONSIDER LOW DOSE STATIN IF INDICATED. HISTORY OF GASTRIC BYPASS BY DR GALVEZ ON 11/19/19. I WILL CONTINUE TO FOLLOW.
--- NOTE | 2020-10-16 12:01 | HO.PM.IMPN ---
Subjective Subjective Date of Service: 10/17/20 Interval History: Seen in f/u for acute stroke with facial droop that seems better today Review of Systems Gen: no fever Resp: no sob, no cough CV: no chest, no HAMMER, no leg edema GI: No n/v, no abd pain Neuro: No confusion, no weakness in limbs Physical Exam Vital Signs: Vital Signs: Last Vital Signs Temp 97.7 F 10/16/20 11:20 Pulse 73 10/16/20 11:20 Resp 18 10/16/20 11:20 BP 102/59 L 10/16/20 11:20 Pulse Ox 96 10/16/20 11:20 Body Mass Index 23.4 Const: Other: General: AO X 3, no acute distress Resp: CTA bilateral CVS: S1,S2,RRR GI: +BS, NT, no distention Skin: No rash Neuro: motor grossly intact, mild righ facial droop but patient says that this normal for her Psych: appropriate affect Objective Data Current Medications Generic Name Dose Route Start Last Admin Trade Name Yayaq PRN Reason Stop Dose Admin Acetaminophen 650 mg 10/15/20 22:09 10/16/20 08:48 Acetaminophen 325 Mg Tablet PO 650 mg Q6H PRN Administration Pain, Mild (Pain Scale 1-3) Atorvastatin Calcium 80 mg 10/16/20 09:00 10/16/20 08:51 Atorvastatin Calcium 80 Mg Tablet PO 80 mg DAILY FRANCO Administration Brexpiprazole 3 mg 10/16/20 21:00 Brexpiprazole 1 Mg Tablet PO BEDTIME FRANCO Clonazepam 1 mg 10/16/20 21:00 Clonazepam 1 Mg Tablet PO BEDTIME FRANCO Clopidogrel Bisulfate 75 mg 10/16/20 09:00 10/16/20 08:51 Clopidogrel Bisulfate 75 Mg Tablet PO 75 mg DAILY FRANCO Administration Clotrimazole 1 appl 10/16/20 09:00 10/16/20 09:02 Clotrimazole 1 % Cream 15 Gm Tube TOPICAL 1 appl BID FRANCO Administration Protocol Cyanocobalamin 1,000 mcg 10/29/20 10:00 Cyanocobalamin (Vitamin B-12) 1,000 Mcg/Ml Vial IM Q14D FRANCO Docusate Sodium 100 mg 10/15/20 22:09 Docusate Sodium 100 Mg Capsule PO DAILY PRN Constipation Escitalopram Oxalate 20 mg 10/16/20 09:00 10/16/20 08:51 Escitalopram Oxalate 20 Mg Tablet PO 20 mg DAILY FRANCO Administration Lamotrigine 200 mg 10/16/20 21:00 Lamotrigine 100 Mg Tablet PO DAILY FRANCO Lamotrigine 150 mg 10/16/20 09:20 10/16/20 10:08 Lamotrigine 100 Mg Tablet PO 150 mg DAILY FRANCO Administration Ondansetron HCl 4 mg 10/15/20 22:09 Ondansetron Hcl 4 Mg/2 Ml Vial IVPUSH Q8H PRN Nausea and Vomiting Oxybutynin Chloride 10 mg 10/16/20 09:00 10/16/20 08:50 Oxybutynin Chloride Er 5 Mg Tab.Er.24 PO 10 mg DAILY FRANCO Administration Oxycodone HCl 5 mg 10/16/20 11:55 Oxycodone Hcl Immed Release 5 Mg Tablet PO Q6H PRN Pain, Severe (Pain Scale 7-10) Quetiapine Fumarate 25 mg 10/16/20 21:00 Quetiapine Fumarate 25 Mg Tablet PO BEDTIME FRANCO Sucralfate 1 gm 10/16/20 09:00 10/16/20 08:51 Sucralfate 1 Gm Tablet PO 1 gm BID FRANCO Administration Topiramate 25 mg 10/16/20 21:00 Topiramate 25 Mg Tablet PO BEDTIME FRANOC Triamterene/Hydrochlorothiazide 1 tab 10/16/20 09:00 10/16/20 08:50 Triamterene/Hctz 37.5/25 Tablet PO 1 tab DAILY FRANCO Administration Protocol Venlafaxine HCl 100 mg 10/16/20 09:00 10/16/20 08:49 Venlafaxine Hcl 25 Mg Tablet PO 100 mg DAILY FRANCO Administration Vortioxetine 20 mg 10/16/20 09:00 10/16/20 08:51 Vortioxetine Hydrobromide 20 Mg Tablet PO 20 mg DAILY FRANCO Administration Labs CBC & Chem 7: 10/15/20 22:21 10/15/20 22:21 Assessment and Plan (1) Acute CVA (cerebrovascular accident): Status: Acute Assessment and Plan: 60-year-old female with a history of brain aneurysm status post clipping, bariatric surgery who presents to the hospital with complaints of left facial droop as well as slurred speech noticed by her family # acute stroke - CT angiogram as above - neuro exam significant for slight facial droop on the left, as well as 4/5 strength in the upper extremity which patient reports is chronic - the case was discussed with Neurology, as well as [facility] neuro surgery, given the low NIH score of patient, they recommended no further intervention for the occlusion - discussion was made with her bariatric surgeon who wanted Plavix instead of aspirin - Plavix 75 mg daily, - Deanna - PT OT tomorrow - speech eval -Neuro consult # anxiety and depression - continue clonazepam, escitalopram and quetiapine as well as venlafaxine
[2020-10-16] MEDS: oxyCODONE HCl Immed Release 5 MG TABLET PO ×2 (12:24→18:22)
--- NOTE | 2020-10-16 16:05 | MHC.PIE ---
P: PT C/O 12/20 MID BACK PAIN. I: PT GIVEN 650 MG TYLENOL WITH NO RELIEF. COVERING MD MADE AWARE. OXYCODONE 5 MG ORDERED AND GIVEN. E: PT STATES PAIN IS ZERO WHEN NOT MOVING BUT 6-7 WHEN MOVING. PT OK WITH THAT.
--- NOTE | 2020-10-16 17:08 | P.CNNE_ITS ---
History of Present Illness Data of Consult Service Date: 10/16/20 Primary Care Provider: Unknown Physician HPI Reason for consult: Fall with left hemiparesis This is a 60-year-old woman with a history of clipping of a left MCA aneurysm at [facility] in 2014 complicated by a small stroke and seizures controlled with lamotrigine with no seizures in the last 1 year who presented after she fell off the bed apparently because she slid off. She could not get up off the bed and texted her daughter who help get her up. When she was evaluated in the emergency room she was noted to have left facial droop and left hemiparesis. Her speech was also little slow. Her CT scan showed early ischemic infarct changes in and the right in sooner and operculum area and the thalamus. CTA did not show any occlusive disease in the neck. There was occlusion of the M2 segment on the right and on the left. The patient had minor symptoms of slight facial droop and mild weakness in the biceps and triceps. The interventionalist decided not to intervene. TPA was not given because of her delay on arrival and a positive CT scan. She feels there has been some improvement but she is not back to normal. She has been started on Plavix 75 mg a day because she has had gastric bypass surgery and her surgeon advised against the use of aspirin. 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 The CT scan on this admission shows a 1.7 cm lesion in the right internal auditory canal. Review of Systems Eyes: Eyes: Reports no additional eye complaints ENT: Reports system reviewed and no additional complaints, except as documented Cardiovascular: Cardiovascular: Reports no additional cardiovascular complaints Respiratory: Respiratory: Reports no additional respiratory complaints Gastrointestinal: Gastrointestinal: Reports no additional gastrointestinal complaints Musculoskeletal: Musculoskeletal: Reports no additional musculoskeletal complaints Integumentary/Breasts: Skin/Breast: Reports system reviewed and no additional complaints, except as docu Neurologic: Reports as per HPI Psychiatric: Psychiatric: Reports as per HPI Endocrine: Endocrine: Reports no additional endocrine complaints Hematologic/Lymphatic: Hematologic/Lymphatic: Reports no additional hematologic/lymphatic complaints Allergic/Immunologic: Allergic/Immunologic: Reports no additional allergic/immunologic complaints PMF Past Medical History Medical History H/O cerebral artery occlusion Intestinal malabsorption Overweight Schwannoma Family History Family History Father No problems noted. Mother No problems noted. Surgical History Surgical History H/O cosmetic surgery History of craniotomy History of pubovaginal sling History of Anahi-en-Y gastric bypass Hx laparoscopic cholecystectomy Hx of hernia repair S/P laminectomy S/P nasal surgery S/P rotator cuff repair S/P TKR (total knee replacement) Social History Social History Household Members: None Housing: Condominium Do you presently have visiting nurse or other home services: No (pt sister helps her out around house) Alcohol intake: current Alcohol intake frequency: holidays/special occasions only Patient Tobacco Use Status: Former Tobacco user Cigarette Packs Per Day: 2 Cigarettes Per Day: 40.0 Smoked in Last 30 Days: No Use of substances other than those prescribed or required for medical reasons: No Have you been hit, kicked, punched, or otherwise hurt by someone within the past year? If so, by whom?: No Do you feel safe in your current relationship?: No Is there a partner from a previous relationship who is making you feel unsafe now?: No Are you made to feel afraid or neglected: No Advance Directives: No Advance Directives Information Provided: No Do you have thoughts of harming others: None Do you have a plan to hurt others: No Plan Recently lost weight without trying: No How much weight loss: Not applicable Eating poorly because of decreased appetite: No Nutrition screen score: 0 Nutrition Risks: No Nutritional Risk Patient : No : No Poor oral hygiene: No service: No Current occupational status: disabled Meds Allergies Allergy/AdvReac Type Severity Reaction Status Date / Time epinephrine [EPINEPHRINE] Allergy Unknown SHAKY Verified 10/15/20 16:36 metoclopramide [From REGLAN] Allergy Unknown FIGHT OR Verified 10/15/20 16:36 FLIGHT RESPONSE morphine [MORPHINE] Allergy Unknown GI UPSET Verified 10/15/20 16:36 Active Medications: Current Medications Generic Name Dose Route Start Last Admin Trade Name Freq PRN Reason Stop Dose Admin Acetaminophen 650 mg 10/15/20 22:09 10/16/20 08:48 Acetaminophen 325 Mg Tablet PO 650 mg Q6H PRN Administration Pain, Mild (Pain Scale 1-3) Atorvastatin Calcium 80 mg 10/16/20 09:00 10/16/20 08:51 Atorvastatin Calcium 80 Mg Tablet PO 80 mg DAILY FRANCO Administration Brexpiprazole 3 mg 10/16/20 21:00 Brexpiprazole 1 Mg Tablet PO BEDTIME FRANCO Clonazepam 1 mg 10/16/20 21:00 Clonazepam 1 Mg Tablet PO BEDTIME FRANCO Clopidogrel Bisulfate 75 mg 10/16/20 09:00 10/16/20 08:51 Clopidogrel Bisulfate 75 Mg Tablet PO 75 mg DAILY FRANCO Administration Clotrimazole 1 appl 10/16/20 09:00 10/16/20 09:02 Clotrimazole 1 % Cream 15 Gm Tube TOPICAL 1 appl BID FRANCO Administration Protocol Cyanocobalamin 1,000 mcg 10/29/20 10:00 Cyanocobalamin (Vitamin B-12) 1,000 Mcg/Ml Vial IM Q14D FRANCO Docusate Sodium 100 mg 10/15/20 22:09 Docusate Sodium 100 Mg Capsule PO DAILY PRN Constipation Escitalopram Oxalate 20 mg 10/16/20 09:00 10/16/20 08:51 Escitalopram Oxalate 20 Mg Tablet PO 20 mg DAILY FRANCO Administration Lamotrigine 200 mg 10/16/20 21:00 Lamotrigine 100 Mg Tablet PO DAILY COUNT INCLUDES THE [facility] Lamotrigine 150 mg 10/16/20 09:20 10/16/20 10:08 Lamotrigine 100 Mg Tablet PO 150 mg DAILY FRANCO Administration Ondansetron HCl 4 mg 10/15/20 22:09 Ondansetron Hcl 4 Mg/2 Ml Vial IVPUSH Q8H PRN Nausea and Vomiting Oxybutynin Chloride 10 mg 10/16/20 09:00 10/16/20 08:50 Oxybutynin Chloride Er 5 Mg Tab.Er.24 PO 10 mg DAILY FRANCO Administration Oxycodone HCl 5 mg 10/16/20 11:55 10/16/20 12:24 Oxycodone Hcl Immed Release 5 Mg Tablet PO 5 mg Q6H PRN Administration Pain, Severe (Pain Scale 7-10) Quetiapine Fumarate 25 mg 10/16/20 21:00 Quetiapine Fumarate 25 Mg Tablet PO BEDTIME COUNT INCLUDES THE [facility] Sucralfate 1 gm 10/16/20 09:00 10/16/20 08:51 Sucralfate 1 Gm Tablet PO 1 gm BID FRANCO Administration Topiramate 25 mg 10/16/20 21:00 Topiramate 25 Mg Tablet PO BEDTIME FRANCO Triamterene/Hydrochlorothiazide 1 tab 10/16/20 09:00 10/16/20 08:50 Triamterene/Hctz 37.5/25 Tablet PO 1 tab DAILY FRANCO Administration Protocol Venlafaxine HCl 100 mg 10/16/20 09:00 10/16/20 08:49 Venlafaxine Hcl 25 Mg Tablet PO 100 mg DAILY FRANCO Administration Vortioxetine 20 mg 10/16/20 09:00 10/16/20 08:51 Vortioxetine Hydrobromide 20 Mg Tablet PO 20 mg DAILY FRANCO Administration Home Medications Medication Instructions Recorded Confirmed Last Taken Type brexpiprazole [Rexulti] 1 tab PO BEDTIME 10/15/20 10/15/20 Unknown History clonazepam 1 tab PO BEDTIME 10/15/20 10/15/20 Unknown History clotrimazole 1 appl TOPICAL BID 10/15/20 10/15/20 Unknown History cyanocobalamin (vitamin B-12) 1 ml IM Q2W 10/15/20 10/15/20 Unknown History escitalopram oxalate 1 tab PO DAILY 10/15/20 10/15/20 Unknown History lamotrigine 1 tab PO DAILY 10/15/20 10/15/20 Unknown History ondansetron 1 tab PO Q12H 10/15/20 10/15/20 Unknown History oxybutynin chloride 1 tab PO DAILY 10/15/20 10/15/20 Unknown History quetiapine 1 tab PO BEDTIME 10/15/20 10/15/20 Unknown History sucralfate 1 tab PO BID 10/15/20 10/15/20 Unknown History topiramate 1 cap PO BEDTIME 10/15/20 10/15/20 Unknown History triamterene-hydrochlorothiazid 1 tab PO DAILY 10/15/20 10/15/20 Unknown History venlafaxine 1 tab PO DAILY 10/15/20 10/15/20 Unknown History vortioxetine [Trintellix] 1 tab PO DAILY 10/15/20 10/15/20 Unknown History Physical Exam Vital Signs: Vital Signs: Last Vital Signs Temp 98.0 F 10/16/20 15:09 Pulse 66 10/16/20 15:09 Resp 20 10/16/20 15:09 BP 97/57 L 10/16/20 15:09 Pulse Ox 97 10/16/20 15:09 Body Mass Index 23.4 Const: General: cooperative, comfortable, no acute distress, well developed, alert and awake Nutritional Appearance: well nourished Orientation/consciousness: oriented to person, oriented to place and oriented to time Limitations: no limitations HENMT: Head: Yes normal to inspection, Yes normocephalic and Yes atraumatic Ears: hearing grossly normal bilaterally General nose exam: Normal external nose present Face and sinus: Yes normal facial exam Mouth: Normal oral and palatal mucosa present Eyes: General: appearance normal, both eyes and all related structures Visual Carreno: normal visual carreno by confrontation Alignment and Position: alignment normal Periorbital: periorbital findings normal Eyelids: Yes eyelids normal Conjunctivae: conjunctivae normal Sclerae: sclerae normal Corneas: corneas normal Pupils: Equal, round and reactive pupils present and Pupil accommodation reflex normal EOM: EOMs intact bilaterally Direct Ophthalmoscopy: normal light reflex Neck: Neck: Yes normal visual inspection, Yes full ROM and Yes no meningeal signs Thyroid: Thyroid normal Carotids: normal carotid upstroke and bounding pulses Chest: Chest palpation & inspection: normal inspection of the chest Resp: Effort & Inspection: normal respiratory effort Auscultation: clear to auscultation bilaterally Cardio: Rate: regular rate Rhythm: regular rhythm Heart sounds: S1 normal heart sound present and S2 normal heart sound present Peripheral pulses: Peripheral pulses 2+ throughout GI: Inspection: Yes normal to inspection Percussion: Yes normal to percussion Auscultation: normal bowel sounds Rectal Exam - Female: deferred Back/Spine/Pelvis: Cervical Spine: normal cervical lordosis and cervical ROM normal Thoracic/Lumbar Spine: thoracic and lumbar spine normal to inspection Skin: General skin exam: no rashes or lesions noted Neuro: Other: Mild left facial droop. Weakness in the left upper extremity with the shipping/receiving manager being 5-/5. The left triceps and deltoid are 4/5 and 4+/5 General: oriented to person, oriented to place, oriented to time, gait normal, tone normal, moves all extremities, Normal light touch and pain sensation, no meningeal signs, no focal motor deficits, CN's II-XI intact bilaterally, normal sensation to monofilament and deep tendon reflexes 2+ bilaterally Cranial nerves: Yes Equal, round and reactive pupils present, Yes Bilaterally intact EOM present, Yes Nystagmus not present, Yes Midline tongue present, Yes Normal gag reflex present, Yes Symmetric palate elevation present and Yes Ability to bilaterally rotate head present Cognition (Neuro): normal cognition Speech: Other speech findings present (Neuro) Motor exam (neuro): Pronator motor function not present, no tremor noted, no asterixis, Motor fasciculations not present, Normal motor muscle tone present throughout and Motor abnormalities not present Sensory Exam: Bilaterally intact graphesthesia Deep tendon reflexes (DTR's): Right triceps reflex intensity grade: 2+, Left triceps reflex intensity grade: 2+, Rt Biceps (C5, C6): 2+, Left biceps reflex intensity grade: 2+, Right brachioradialis reflex intensity grade: 2+, Left brachioradialis reflex intensity grade: 2+, Right patellar reflex intensity grade: 2+, Left patellar reflex intensity grade: 2+, Right ankle reflex intensity grade: 2+ and Left ankle reflex intensity grade: 2+ Plantar Reflex Responses: downgoing: right and upgoing (positive Babinski): left Coordination: [id number] test normal and [id number] test normal Pupils: Normal pupillary reactivity/response: bilateral Extrem: General: Yes normal to inspection, Yes normal exam except as noted and Yes no pedal edema Psych: Appearance: grossly normal Mental Status: mental status grossly normal Speech and movement: Normal speech and movement present and Clear speech present Affect: normal affect Attitude: cooperative Thought process: Normal thought process present Results Labs CBC & Chem 7: 10/15/20 22:21 10/15/20 22:21 Labs: Short CBC 10/15/20 10/15/20 10/15/20 Range/Units 16:52 19:14 22:21 WBC 4.6 L 3.5 L 3.5 L (4.8-10.8) X10*3/uL Hgb 10.3 L 8.8 L 9.4 L (12.0-16.0) g/dl Hct 31.5 L 27.1 L 28.0 L (37-47) % Plt Count 242 206 198 (160-400) X10*3/uL BMP 10/15/20 10/15/20 10/15/20 16:51 19:14 22:21 Sodium 142 141 141 Potassium 3.6 3.2 L 3.1 L Chloride 108 109 H 110 H Carbon Dioxide 24 24 23 BUN 17 H 15 14 Creatinine 0.58 0.55 0.57 Calcium 9.4 8.7 D 8.7 Liver Function 10/15/20 10/15/20 Range/Units 16:51 19:14 Total Bilirubin 0.9 0.7 (0.0-1.0) mg/dL Direct Bilirubin 0.4 (0.0-0.5) mg/dL AST 51 H 38 H (5-31) U/L ALT 42 H 35 H (0-31) U/L Alkaline Phosphatase 107 92 (39-117) U/L Albumin 3.9 3.3 L (3.5-5.0) g/dL Assessment and Plan (1) Acute CVA (cerebrovascular accident): Status: Acute PT OT and speech evaluation. Swallowing evaluation. Continue Plavix 75 mg a day. She is scheduled for a follow-up MRI of her brain for the schwannoma at the [facility] on Saturday and therefore another MRI need not be done here. Lipid profile. Add atorvastatin 40 mg a day Procedures Date of Service Date of Service: 10/16/20
[2020-10-16] MEDS: clonazePAM 1 MG TABLET PO (21:01)
[2020-10-16] MEDS: lamoTRIgine 100 MG TABLET 200 MG PO (21:01)
[2020-10-16] MEDS: Lidocaine 4 % Patch ADH..PATCH 1 PATCH TRANSDERMA (21:26)
[2020-10-17] MEDS: oxyCODONE HCl Immed Release 5 MG TABLET PO ×3 (00:15→12:10)
[2020-10-17 04:00] VITALS: BP 92/57; PULSE 88; RESP 18; TEMP 36.4; O2SAT 97
[2020-10-17] MEDS: Docusate Sodium 100 MG CAPSULE PO (05:59)
[2020-10-17 07:38] VITALS: BP 98/57; PULSE 81; RESP 18; TEMP 36.2; O2SAT 98
[2020-10-17] MEDS: Escitalopram Oxalate 20 MG TABLET PO (08:49)
[2020-10-17] MEDS: Venlafaxine HCL 25 MG TABLET 100 MG PO (08:50)
[2020-10-17] MEDS: Clopidogrel Bisulfate 75 MG TABLET PO (08:50)
[2020-10-17] MEDS: Sucralfate 1 GM TABLET PO (08:51)
[2020-10-17] MEDS: Atorvastatin Calcium 80 MG TABLET PO (08:51)
[2020-10-17] MEDS: Lidocaine 4 % Patch ADH..PATCH 1 PATCH TRANSDERMA (08:51)
[2020-10-17] MEDS: Vortioxetine Hydrobromide 20 MG TABLET PO (08:51)
[2020-10-17] MEDS: Clotrimazole 1 % Cream 15 GM TUBE 1 APPL TOPICAL (08:52)
[2020-10-17] MEDS: lamoTRIgine 100 MG TABLET 150 MG PO (08:57)
[2020-10-17] MEDS: Triamterene/HCTZ 37.5/25 TABLET 1 TAB PO (09:08)
[2020-10-17 11:37] VITALS: BP 100/64; PULSE 71; RESP 18; TEMP 36.4; O2SAT 99
--- NOTE | 2020-10-17 12:09 | ECG_ITS ---
Test Reason : . Blood Pressure : / mmHG Vent. Rate : 065 BPM Atrial Rate : 065 BPM P-R Int : 138 ms QRS Dur : 088 ms QT Int : 392 ms P-R-T Axes : 060 046 042 degrees QTc Int : 407 ms Normal sinus rhythm Normal ECG When compared with ECG of 17-OCT-2020 08:38, No significant change was found Referred By: [facility] Electronically Signed By:MARIELLA ROYAL MD
--- NOTE | 2020-10-17 12:11 | P.DS_ITS ---
DS: Providers Provider Date of Service: 10/17/20 <Dolores Esteves NP - Last Filed: 10/17/20 17:59> Date of admission: 10/15/20 21:38 <Dolores Esteves NP - Last Filed: 10/17/20 17:59> Date of discharge: 10/17/20 <Dolores Esteves NP - Last Filed: 10/17/20 17:59> Primary care physician: Unknown Physician <Dolores Esteves NP - Last Filed: 10/17/20 17:59> Admitting clinician: Elliott Villalobos <Dolores Esteves NP - Last Filed: 10/17/20 17:59> Attending physician on admission: Elliott Villalobos <Dolores Esteves NP - Last Filed: 10/17/20 17:59> Consults: 10/15/20 22:09 Consult to Neurology Routine Consulting Provider: [facility] Reason for consultation: Stroke Has provider been notified: Yes <Dolores Esteves NP - Last Filed: 10/17/20 17:59> Attending physician on discharge: Marquez Sparks <Dolores Esteves NP - Last Filed: 10/17/20 17:59> Discharging clinician: Dolores Esteves <Dolores Esteves NP - Last Filed: 10/17/20 17:59> DS: Diagnosis Discharge Diagnosis (1) Acute CVA (cerebrovascular accident): Status: Acute <Dolores Esteves NP - Last Filed: 10/17/20 17:59> DS: Medications Discharge Medications Home Medications: Home Medications Medication Instructions Recorded Confirmed brexpiprazole [Rexulti] 1 tab PO BEDTIME 10/15/20 10/15/20 clonazepam 1 tab PO BEDTIME 10/15/20 10/15/20 clotrimazole 1 appl TOPICAL BID 10/15/20 10/15/20 cyanocobalamin (vitamin B-12) 1 ml IM Q2W 10/15/20 10/15/20 escitalopram oxalate 1 tab PO DAILY 10/15/20 10/15/20 lamotrigine 1 tab PO DAILY 10/15/20 10/15/20 ondansetron 1 tab PO Q12H 10/15/20 10/15/20 oxybutynin chloride 1 tab PO DAILY 10/15/20 10/15/20 quetiapine 1 tab PO BEDTIME 10/15/20 10/15/20 sucralfate 1 tab PO BID 10/15/20 10/15/20 topiramate 1 cap PO BEDTIME 10/15/20 10/15/20 triamterene-hydrochlorothiazid 1 tab PO DAILY 10/15/20 10/15/20 venlafaxine 1 tab PO DAILY 10/15/20 10/15/20 vortioxetine [Trintellix] 1 tab PO DAILY 10/15/20 10/15/20 pantoprazole [Protonix] 40 mg PO DAILY 10/16/20 10/16/20 <Dolores Esteves, [employer]SEMBLER - Last Filed: 10/17/20 17:59> DS: Summary Hospital Course Hospital Course: HP as per admitting provider 60-year-old female with past medical history of schwannoma, history of brain aneurysm status post coiling, Anahi-en-Y gastric bypass, CVA who presents to the hospital with complaints of left facial droop as well as slurred speech noticed by her family. Patient herself denies notici ng these things, it appears that this occurred around 9:00 a.m., by the time she presented to the hospital she was outside of the tPA window. Patient denies having any headache, no change in vision, no chest pain or palpitations, no abdominal pain nausea or vomiting, no diarrhea constipation no urinary symptoms. On arrival to the ED patient hemodynamically stable with no significant past medical history. Labs are significant for WBC count of 3.5 she is chronically leukopenic, hemoglobin of PT of 13.4, INR of 1.1, potassium of 3.2, AST of 38, ALT of 35 chronically elevated, COVID negative. Patient underwent head and neck CT angiogram which showed acute infarct of the right anterior insula, right frontal operculum, and right lentiform nucleus/caudate head. No hemorrhagic conversion. 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 Stroke. History of brain aneurysm status post clipping, bariatric surgery who presents to the hospital with complaints of left facial droop as well as slurred speech noticed by her family. CT angiogram showed acute infarct of the right anterior insula, right frontal operculum, and right lentiform nucleus/caudate head. No hemorrhagic conversion. 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 Symptoms improved and patient was seen and evaluated by neurology. She was started on Plavix and she will have a follow up MRI in [place] as she is getting workup for Schwannoma. Home PT services. <Dolores Esteves NP - Last Filed: 10/17/20 17:59> Time Spent with Patient Time attestation: Total time spent providing and/or coordinating discharge services: <Dolores Esteves NP - Last Filed: 10/17/20 17:59> Discharge coordination time: Greater than 30 minutes <Dolores Esteves NP - Last Filed: 10/17/20 17:59> Quality: Stroke Does the patient have a stroke diagnosis?: Yes <Dolores Esteves NP - Last Filed: 10/17/20 17:59> Reason for No Antithrombin at DC: Not indicated <Dolores Esteves NP - Last Filed: 10/17/20 17:59> Reason for No Anticoagulant at DC: Not indicated <Dolores Esteves NP - Last Filed: 10/17/20 17:59> Contraindication Not Initiating IV-Tpa: Not indicated <Dolores Esteves NP - Last Filed: 10/17/20 17:59> Contraindication Antithrombin by Day Two: Not indicated <Dolores Esteves NP - Last Filed: 10/17/20 17:59> Contraindication No Statin at DC: N/A - Med Ordered <Dolores Esteves NP - Last Filed: 10/17/20 17:59> Reason Stroke Education Not Initiated: Drug declined by patient <Dolores Esteves NP - Last Filed: 10/17/20 17:59> Physical Exam Vital Signs: Vital Signs: Last Vital Signs Temp 97.6 F 10/17/20 11:37 Pulse 71 10/17/20 11:37 Resp 18 10/17/20 11:37 BP 100/64 10/17/20 11:37 Pulse Ox 99 10/17/20 11:37 Body Mass Index 23.4 <Dolores Esteves NP - Last Filed: 10/17/20 17:59> Appearing in no acute distress head is normocephalic atraumatic eyes pupils are PERRLA sclera is anicteric mouth throat mucous membranes are intact and moist neck is supple no lymphadenopathy, no JVD noted lung sounds are clear to auscultation heart regular rate rhythm, clear S1, S2 positive bowel sounds, abdomen is soft, nontender neuro patient is alert x3, no focal deficits <Dolores Esteves NP - Last Filed: 10/17/20 17:59> Discharge Plan Discharge Anticipated Discharge Date/Time: 10/17/20 12:06 <Dolores Esteves NP - Last Filed: 10/17/20 17:59> Patient Disposition: Home, Self-Care <Dolores Esteves NP - Last Filed: 10/17/20 17:59> Discharge Diagnosis: Stroke <Dolores Esteves NP - Last Filed: 10/17/20 17:59> Stroke <Marquez Sparks MD - Last Filed: 10/17/20 19:34> Referrals: [facility] [Other] - 1 Week Physician,Unknown [Physician] - 1 Week <Dolores Esteves NP - Last Filed: 10/17/20 17:59> Discharge Medications: New atorvastatin 80 mg Tablet 80 mg PO DAILY Qty: 30 RF: 0 clopidogrel 75 mg Tablet 75 mg PO DAILY Qty: 30 RF: 0 Continued quetiapine 25 mg tablet 1 tab PO BEDTIME RF: 0 lamotrigine 200 mg tablet 1 tab PO DAILY RF: 0 oxybutynin chloride 10 mg tablet extended release 24hr 1 tab PO DAILY RF: 0 sucralfate 1 gram tablet 1 tab PO BID RF: 0 clonazepam 1 mg tablet 1 tab PO BEDTIME RF: 0 venlafaxine 100 mg tablet 1 tab PO DAILY RF: 0 topiramate 25 mg capsule, sprinkle 1 cap PO BEDTIME RF: 0 cyanocobalamin (vitamin B-12) 1,000 mcg/mL solution 1 ml IM Q2W RF: 0 triamterene-hydrochlorothiazid 37.5-25 mg tablet 1 tab PO DAILY RF: 0 ondansetron 4 mg tablet,disintegrating 1 tab PO Q12H RF: 0 clotrimazole 1 % cream 1 appl topical BID RF: 0 escitalopram oxalate 20 mg tablet 1 tab PO DAILY RF: 0 Trintellix 20 mg tablet 1 tab PO DAILY RF: 0 Rexulti 3 mg tablet 1 tab PO BEDTIME RF: 0 pantoprazole [Protonix] 40 mg Tablet,Delayed Release (Dr/Ec) 40 mg PO DAILY RF: 0 <Dolores Esteves NP - Last Filed: 10/17/20 17:59> Discharge Orders: Discharge Order (Routine); Ordered 10/17/20 Ordered By: Dolores Esteves <Dolores Esteves NP - Last Filed: 10/17/20 17:59> Diet: advance to usual diet <Dolores Esteves NP - Last Filed: 10/17/20 17:59> advance to usual diet <Marquez Sparks MD - Last Filed: 10/17/20 19:34> Activity on Discharge: As tolerated <Dolores Esteves NP - Last Filed: 10/17/20 17:59> As tolerated <Marquez Sparks MD - Last Filed: 10/17/20 19:34> Stand Alone Forms: Patient Portal Discharge page <Dolores Esteves NP - Last Filed: 10/17/20 17:59> Care Plan Goals: Resolution of stroke symptoms <Dolores Esteves NP - Last Filed: 10/17/20 17:59> Health Concerns: Stroke <Dolores Esteves NP - Last Filed: 10/17/20 17:59> Plan of Treatment: Follow up with your primary care provider as needed <Dolores Esteves NP - Last Filed: 10/17/20 17:59> Assessment: See discharge summary I saw and examined this patient and discussed finding and discharge plan, meds and disposition with [employer]ER and I agree with plan as written by [employer]BLER <Dolores Esteves NP - Last Filed: 10/17/20 17:59> Discharge Date/Time: 10/17/20 15:30 <Dolores Esteves NP - Last Filed: 10/17/20 17:59>
--- NOTE | 2020-10-17 12:31 | MHC.CM.PN ---
Addendum entered by Stacy Davidson 10/17/20 14:41: [facility] ACCEPTING REFERRAL AND WILL START PTS PT SERVICES THE END OF THIS WEEK. Original Note: CM MET WITH PT WHO CONFIRMS SHE PLANS TO DC HOME TODAY. SHE IS AWARE HOME PT HAS BEEN RECOMMENDED AND SHE REQUESTS A REFERRAL TO [facility]. REFERRAL SENT. PT WILL DC HOME TODAY WITH [facility] FAMILY TO TRANSPORT
--- NOTE | 2020-10-17 13:00 | CA_ITS ---
Transthoracic Echocardiogram Patient (Last, First, Middle): Amanda Ponce, Gender: Female Date of : 1960 Age: 60 Procedure Date: 10/17/2020 Procedure Type: Transthoracic Echocardiogram Location: [facility] [place] Height: 152.4 cm Weight: 54.43 kg BSA: 1.50 m2 Heart Rate: bpm BP: 118 / 60 mmHg Pattern Weaver: AMANDA Referring MD: Dolores Esteves NP Support Analyst: Antolin Paige MD Symptoms: stroke Study Quality: Fair ECG Rhythm: Sinus Conclusions: - 1. Normal LV systolic function with grade 1 diastolic dysfunction 2. Highly mobile interatrial septum, interatrial shunting cannot be ruled out 3. Normal cardiac valvular Doppler 4. Normal RV systolic pressure 5. No pericardial effusion Findings Left Ventricle Normal left ventricular size, thickness, and systolic function. The visually estimated ejection fraction is between 60-65%. Spectral Doppler is indicative of an impaired relaxation filling pattern. E/E prime ratio is <8, consistent with normal filling pressures. Evidence suggests grade I (mild) diastolic dysfunction. Right Ventricle Normal right ventricular cavity size and systolic function. Atria Both atria are normal in size. There is a highly mobile atrial septum noted. Interatrial shunt cannot be excluded. Aortic Valve The aortic valve structure and function is likely normal. There is no aortic valve stenosis. There is no aortic valve regurgitation. Mitral Valve Normal mitral valve structure and function. There is trace mitral valve regurgitation. There is no mitral valve stenosis. Pulmonic Valve The pulmonic valve was not well visualized. Tricuspid Valve Likely normal tricuspid valve structure and function. There is trace tricuspid valve regurgitation. The right ventricular systolic pressure is normal. The right ventricular systolic pressure is 18 mmHg. Great Vessels All visible segments of the aorta are normal in size. The pulmonary artery was not well visualized. Venous The inferior vena cava was not well visualized. Pericardium/Pleural There is no evidence of pericardial effusion. Prior Study Comparison No prior study available for comparison. Recommendations, Care & Conclusions Consider a MICHELLE if clinically appropriate. Recommend contrast study to evaluate intracardiac shunting. Measurements 2D Linear Measurements IVSd: 1.02 0.6-0.9/0.6-1.0 cm LVIDd: 3.80 3.9-5.3/4.2-5.9 cm LVIDd Index: 2.53 2.4-3.2/2.2-3.1 cm/m2 LVIDs: 2.67 2.0-3.6 cm LVPWd: 1.08 0.7-1.1 cm Ao Root: 2.90 2.1-3.5 cm LA Diam: 3.80 2.7-3.8/3.0-4.0 cm LAIDs Index: 2.53 1.5-2.3 cm/m2 LV Mass: 156.53 67-162/88-224 g LV Mass Index: 104.35 43-95/49-115 g/m2 LVOT Diam: 2.10 3.0+(-)1.3 cm Mitral Valve MV Pk E: 0.50 MV PK A: 0.93 MV Decel Time: 247.00 E/A: 0.50 E'Lateral: 9.14 E'Medial: 6.42 E/E' Med: 7.80 E/E' Lat: 5.50 PHT: 72.00 MVA PHT: 3.06 Decel [place]: 2.03 Aortic Valve AoV Pk Shahram: 1.52 AoV Mn Shahram: 0.99 AoV VTI: 0.32 AoV Pk Grad: 9.00 Aov Mn Grad: 5.00 ANUEL Cont.VTI: 2.25 LVOT LVOT Pk Hsahram: 0.99 LVOT Mn Shahram: 0.62 LVOT VTI: 0.21 LVOT Pk Grad: 4.00 LVOT Mn Grad: 2.00 LVOT Diam: 2.10 LVOT Area: 3.46 Diastolic Function MV Pk E: 0.50 MV Pk A: 0.93 E/A: 0.50 E'Medial: 6.42 E/E' Med: 7.80 E' Laterial: 9.14 E/E' Lat: 5.50 Tricuspid Valve TR Pk Shahram: 1.92 TR Pk Grad: 15.00 RA Press: 3.00 RVSP: 18.00 Great Vessels Aorta Ao Root-2D: 2.90 2.0-3.7 cm Pulmonary Valve PV Pk Shahram: 1.06 Peak PV Grad: 4.00 Updated in Other Vendor System with Status of Final Antolin Paige MD electronically signed on 10/17/2020 4:38:18 PM with status of Final
--- NOTE | 2020-10-17 14:30 | P.F2F_ITS ---
Documented by User: Dolores Esteves NP 10/17/20 14:33 Service Date Service Date: 10/17/20 Encounter Date of encounter: 10/17/20 Reasons for Services Reason for physical therapy: home safety and mobility and therapeutic exercises Homebound: Leaving the home is medically contraindicated at this time without the asist of a device and/or another person due th the listed conditions above and below. Reason homebound: unsteady gait / fall risk Certification: Based on the above findings, I certify that this patient is confined to the home and needs intermittent residential care, physical therapy and/or speech therapy, or continues to need occupational therapy. The patient is under my care, and I have initiated the establishment of the plan of care. The patient will be followed by a physician who will periodically review the plan of care.
== END 2020-10-17 15:30 | disposition home or self-care (01) | DRG 66 ==
LOC: HO.ED 17:21 → HO.EDOVER 21:57 → HO.IMC 22:37
PROVIDERS: Admitting Provider Internal Medicine; Emergency Provider Emergency Medicine; PCP Family Medicine; Visit Provider Internal Medicine
DX: I63.9 Cerebral infarction, unspecified (principal); R29.703 NIHSS score 3; F41.9 Anxiety disorder, unspecified; F32.9 Major depressive disorder, single episode, unspecified; Z86.79 Personal history of other diseases of the circulatory system; Z20.822 Contact with and (suspected) exposure to COVID-19; Z98.84 Bariatric surgery status; Z96.651 Presence of right artificial knee joint; Z87.891 Personal history of nicotine dependence; Z88.5 Allergy status to narcotic agent; Z79.02 Long term (current) use of antithrombotics/antiplatelets; Z79.899 Other long term (current) drug therapy
CPT/HCPCS: 36415; 70496; 70498; 80048; 80053; 80061; 80076; 82947; 84484; 85025; 85610; 87635; 93005; 93306; 93971; 97161; 97166; 99285; Q9967

== ENCOUNTER → 2020-11-16 07:19 | Outpatient (BNVA) | payer MEDICARE, SELFPAY | PROVIDERS: PCP Family Medicine; Visit Provider Surgery | DX: K90.9 Intestinal malabsorption, unspecified (principal) | CPT/HCPCS: Q3014 ==

== ENCOUNTER 2021-01-04 06:08 | Outpatient (REF) | payer MEDICARE, SELFPAY ==
[2021-01-04 07:01] LABS: MANUAL DIFF FLAG NO
[2021-01-04 07:10] LABS: Basophils Percent Auto 0.3 % (0-2); Eosinophils Percent Auto 1.3 % (0-4); Hematocrit 34.8 % (37-47); Hemoglobin 11.5 g/dl (12.0-16.0); Imm Gran Abs Auto 0.01 X10*3/uL (0.00-0.03); Imm Gran Pct Auto 0.3 % (0.0-0.4); Lymphocytes Absolute Auto 1.1 X10*3/uL (1.2-4.9); Lymphocytes Percent Auto 34.6 % (20-40); Monocytes Absolute Auto 0.3 X10*3/uL (0.1-1.2); Monocytes Percent Auto 10.5 % (2-11); Neutrophils Absolute Auto 1.6 X10*3/uL (2.0-8.3); Platelet Count 242 X10*3/uL (160-400); Red Blood Count 3.48 X10*6/uL (4.20-5.50); Red Cell Distribution Width 14.3 % (11.0-16.0); White Blood Count 3.1 X10*3/uL (4.8-10.8)
[2021-01-04 07:45] LABS: Alanine Aminotransferase 27 U/L (0-31); Albumin Level 4.1 g/dL (3.5-5.0); Alkaline Phosphatase 112 U/L (39-117); Anion Gap 11 (12-20); Aspartate Amino Transferase 25 U/L (5-31); Bilirubin Total 1.5 mg/dL (0.0-1.0); Blood Urea Nitrogen 28 mg/dL (9-16); C Reactive Protein 0.03 mg/dL (< or = 0.50); Calcium 9.5 mg/dL (8.4-10.2); Carbon Dioxide 26 mmol/L (22-29); Chloride 107 mmol/L (96-108); Cholesterol 123 mg/dL; Estimated Glomerular Filt Rate > 60; Glucose Random 88 mg/dL (60-115); HDL Cholesterol 40 mg/dL; Iron 71 mcg/dL (30-160); LDL Cholesterol Calculated 68 mg/dl; Potassium 4.1 mmol/L (3.3-5.1); Sodium 140 mmol/L (135-145); Total Protein 6.5 g/dL (6.5-8.0); Triglycerides 78 mg/dL
[2021-01-04 08:27] LABS: Vitamin D 25-OH Total 25.5 ng/mL (>30)
[2021-01-04 08:57] LABS: Folate 14.5 ng/mL (> or = 4.0); Vitamin B12 1025 pg/mL (200-900)
[2021-01-04 11:42] LABS: Hemoglobin A1c % < 4.0 %
[2021-01-04 11:51] LABS: Ferritin 95 ng/mL (10-250)
[2021-01-04 14:57] LABS: Percent Iron Saturation 29 % (15-50); Total Iron Binding Capacity 248 mcg/dL (228-428); Unsaturated Iron Binding 177 ug/dL
[2021-01-05 09:21] LABS: Insulin Level Total 4.4 uIU/mL
[2021-01-06 19:32] LABS: Calcium (PTHI) 9.6 mg/dL (8.6-10.4); PTHI 50 pg/mL (14-64)
[2021-01-07 01:47] LABS: Zinc 49 mcg/dL (60-130)
[2021-01-08 10:36] LABS: Vitamin B1 26 nmol/L (8-30)
[2021-01-10 19:31] LABS: Vitamin A 29 mcg/dL (38-98)
== END 2021-01-04 06:09 | disposition home or self-care (01) ==
LOC: HO.LAB 06:08
PROVIDERS: PCP Family Medicine; Visit Provider Surgery
DX: E55.9 Vitamin D deficiency, unspecified (principal); I63.9 Cerebral infarction, unspecified; K90.9 Intestinal malabsorption, unspecified; K91.89 Other postprocedural complications and disorders of digestive system
CPT/HCPCS: 36415; 80053; 80061; 82306; 82607; 82728; 82746; 83036; 83525; 83540; 83970; 84425; 84443; 84590; 84630; 85025; 86140

== ENCOUNTER → 2021-01-13 07:26 | Outpatient (BNVA) | payer MEDICARE, SELFPAY | PROVIDERS: PCP Family Medicine; Visit Provider Surgery | CPT/HCPCS: Q3014 ==

== ENCOUNTER → 2021-02-17 08:14 | Outpatient (BNVA) | payer MEDICARE, SELFPAY | PROVIDERS: PCP Family Medicine; Referring Provider Family Medicine; Visit Provider Surgery | DX: K90.9 Intestinal malabsorption, unspecified (principal) | CPT/HCPCS: 99212 ==

== ENCOUNTER → 2021-03-31 08:00 | Outpatient (BNVA) | payer MEDICARE, SELFPAY | PROVIDERS: PCP Family Medicine; Visit Provider Surgery | DX: Z13.89 Encounter for screening for other disorder (principal) | CPT/HCPCS: Q3014 ==

== ENCOUNTER → 2021-05-19 07:26 | Outpatient (BNVA) | payer MEDICARE, SELFPAY | PROVIDERS: PCP Family Medicine; Visit Provider Surgery | DX: K90.9 Intestinal malabsorption, unspecified (principal) | CPT/HCPCS: Q3014 ==

== ENCOUNTER → 2021-07-07 08:24 | Outpatient (BNVA) | payer MEDICARE, SELFPAY | PROVIDERS: PCP Family Medicine; Visit Provider Surgery | DX: Z13.89 Encounter for screening for other disorder (principal) | CPT/HCPCS: Q3014 ==

== ENCOUNTER → 2021-08-18 08:14 | Outpatient (BNVA) | payer MEDICARE, SELFPAY | PROVIDERS: PCP Family Medicine; Visit Provider Surgery | DX: K90.9 Intestinal malabsorption, unspecified (principal) | CPT/HCPCS: Q3014 ==

== ENCOUNTER → 2021-09-19 08:05 | Outpatient (BNVA) | payer MEDICARE, SELFPAY | PROVIDERS: PCP Family Medicine; Visit Provider Dietitian, Registered | DX: E66.9 Obesity, unspecified (principal); Z68.20 Body mass index [BMI] 20.0-20.9, adult; Z98.84 Bariatric surgery status | CPT/HCPCS: 97803 ==

== ENCOUNTER 2021-10-13 08:46 | Outpatient (REF) | payer MEDICARE, SELFPAY ==
[2021-10-13 09:20] LABS: MANUAL DIFF FLAG NO
[2021-10-13 09:50] LABS: Basophils Percent Auto 0.6 % (0-2); Eosinophils Percent Auto 0.6 % (0-4); Hematocrit 29.9 % (37.0-47.0); Hemoglobin 9.2 g/dl (12.0-16.0); Imm Gran Abs Auto 0.02 X10*3/uL (0.00-0.03); Imm Gran Pct Auto 0.6 % (0.0-0.4); Lymphocytes Percent Auto 27.7 % (20-40); Mean Corpuscular HGB Conc 30.8 g/dl (31.0-35.0); Mean Corpuscular Hemoglobin 35.9 pg (27.0-33.0); Mean Platelet Volume 8.9 fL (9.4-12.3); Monocytes Absolute Auto 0.2 X10*3/uL (0.1-1.2); Monocytes Percent Auto 6.2 % (2-11); Neutrophils Absolute Auto 2.3 x10*3/uL (2.0-8.3); Neutrophils Percent Auto 64.3 % (45-73); Platelet Count 229 X10*3/uL (160-400); Red Blood Count 2.56 X10*6/uL (4.20-5.50); Red Cell Distribution Width 13.8 % (11.0-16.0); White Blood Count 3.6 X10*3/uL (4.8-10.8)
[2021-10-13 09:53] LABS: Mean Corpuscular Volume 116.8 fL (80.0-98.0)
[2021-10-13 10:27] LABS: Alanine Aminotransferase 26 U/L (0-31); Albumin Level 3.2 g/dL (3.5-5.0); Alkaline Phosphatase 99 U/L (39-117); Anion Gap 11 (12-20); Aspartate Amino Transferase 30 U/L (5-31); Bilirubin Total 1.1 mg/dL (0.0-1.0); Blood Urea Nitrogen 22 mg/dL (9-16); C Reactive Protein 0.19 mg/dL (< or = 0.50); Calcium 8.9 mg/dL (8.4-10.2); Carbon Dioxide 28 mmol/L (22-29); Chloride 107 mmol/L (96-108); Cholesterol 120 mg/dL; Estimated Glomerular Filt Rate > 60; Glucose Random 81 mg/dL (60-115); HDL Cholesterol 57 mg/dL; Iron 79 mcg/dL (30-160); LDL Cholesterol Calculated 52 mg/dl; Percent Iron Saturation 44 % (15-50); Sodium 142 mmol/L (135-145); Total Iron Binding Capacity 181 mcg/dL (228-428); Total Protein 5.8 g/dL (6.5-8.0); Triglycerides 56 mg/dL; Unsaturated Iron Binding 102 ug/dL
[2021-10-13 10:51] LABS: Ferritin 388 ng/mL (10-250); TSH reflex Free T4 0.87 uIU/mL (0.32-4.0); Vitamin D 25-OH Total 4.1 ng/mL (>30)
[2021-10-13 11:16] LABS: Vitamin B12 709 pg/mL (200-900)
[2021-10-13 11:23] LABS: Insulin 2 uU/mL (2-29)
[2021-10-16 15:53] LABS: Calcium (PTHI) 8.7 mg/dL (8.6-10.4); PTHI 73 pg/mL (16-77)
[2021-10-18 11:32] LABS: Vitamin B1 16 nmol/L (8-30)
[2021-10-18 17:12] LABS: Vitamin A 5 mcg/dL (38-98)
== END 2021-10-13 08:47 | disposition home or self-care (01) ==
LOC: HO.LAB 08:46
PROVIDERS: PCP Family Medicine; Visit Provider Physician Assistant
DX: E66.3 Overweight (principal); D64.9 Anemia, unspecified; Z98.84 Bariatric surgery status
CPT/HCPCS: 36415; 80053; 80061; 82306; 82607; 82728; 82746; 83036; 83525; 83540; 83970; 84425; 84443; 84590; 84630; 85025; 86140

== ENCOUNTER → 2021-10-20 10:48 | Outpatient (BNVA) | payer MEDICARE, SELFPAY | PROVIDERS: PCP Family Medicine; Visit Provider Dietitian, Registered | DX: Z98.84 Bariatric surgery status (principal) | CPT/HCPCS: 97803 ==

== ENCOUNTER → 2021-11-20 10:11 | Outpatient (BNVA) | payer MEDICARE, SELFPAY | PROVIDERS: PCP Family Medicine; Referring Provider Surgery; Visit Provider Dietitian, Registered | DX: E66.3 Overweight (principal); Z68.22 Body mass index [BMI] 22.0-22.9, adult; Z98.84 Bariatric surgery status; Z71.3 Dietary counseling and surveillance | CPT/HCPCS: 97803 ==